=== PATIENT | female | born 1965 | race Caucasian/White ===

== ENCOUNTER → 2016-09-01 15:03 | Outpatient (CLI) | payer MEDICAID ==
[2012-09-27 01:02] VITALS: BMI 28.7
== END | disposition home or self-care (01) ==
LOC: D.US 15:00
DX: N63 Unspecified lump in breast (principal)

== ENCOUNTER 2016-09-02 15:28 | Emergency (ER) | payer MEDICAID ==
[2012-09-27 01:02] VITALS: BMI 28.7
== END 2016-09-02 16:27 | disposition home or self-care (01) ==
LOC: D.ER 15:28
DX: N64.4 Mastodynia (principal); R60.0 Localized edema; F41.9 Anxiety disorder, unspecified; M54.9 Dorsalgia, unspecified; M54.5 Low back pain; F17.200 Nicotine dependence, unspecified, uncomplicated

== ENCOUNTER 2016-09-04 09:26 | Emergency (ER) | payer MEDICAID ==
[2012-09-27 01:02] VITALS: BMI 28.7
== END 2016-09-04 10:58 | disposition home or self-care (01) ==
LOC: D.ER 09:26
DX: N61.0 Mastitis without abscess (principal); F17.200 Nicotine dependence, unspecified, uncomplicated

== ENCOUNTER → 2016-09-07 10:08 | Outpatient (CLI) | payer MEDICAID ==
[2012-09-27 01:02] VITALS: BMI 28.7
== END | disposition home or self-care (01) ==
LOC: D.US 10:08
DX: N63 Unspecified lump in breast (principal)

== ENCOUNTER 2016-09-18 09:19 | Emergency (ER) | payer MEDICAID ==
[2012-09-27 01:02] VITALS: BMI 28.7
[2016-09-18 10:14] LABS: BASOPHILS 0.5 % (0.0-2.0); EOSINOPHILS 1.7 % (0-7); HEMATOCRIT 53.5 % (36.0-48.0); HEMOGLOBIN 18.2 g/dL (12-16); IMMATURE GRANULOCYTES 0.2 % (0-5); LYMPHOCYTES 35.7 % (15-50); MCH 34.1 pg (26.0-34.0); MCV 100.2 fL (80.0-100.0); MEAN PLATELET VOLUME 9.3 fL (7.4-10.4); MONOCYTES 6.3 % (2-11); NEUTROPHILS 55.6 % (40-80); PLATELET COUNT 242 10x3/uL (130-400); RBC 5.34 10x6/uL (4.00-5.40); RDW 12.5 % (11.5-14.5); WBC 5.7 10x3/uL (4.8-10.8)
[2016-09-18 10:30] LABS: ALBUMIN 3.4 g/dL (3.4-5.0); ALKALINE PHOSPHATASE 71 U/L (46-116); ALT (SGPT) 16 U/L (10-68); CALC OSMOLALITY 272 mosm/kg (275-300); CHLORIDE - SERUM 98 mmol/L (98-107); CREATININE - SERUM 0.7 mg/dL (0.6-1.3); GLUCOSE 84 mg/dL (74-106); POTASSIUM - SERUM 4.1 mmol/L (3.5-5.1); PROTEIN - SERUM 7.1 g/dL (6.4-8.2); SODIUM 138 mmol/L (136-145); UREA NITROGEN 8 mg/dL (7-18); eGFR NON AFRICAN AMERICAN > 90 mL/min (90-120)
[2016-09-18 11:00] LABS: APPEARANCE HAZY (CLEAR); COLOR YELLOW (YELLOW); GLUCOSE NEGATIVE (NEGATIVE); KETONE NEGATIVE (NEGATIVE); LEUKOCYTE ESTERASE TRACE (NEGATIVE); NITRITE NEGATIVE (NEGATIVE); PROTEIN NEGATIVE (NEGATIVE); SPECIFIC GRAVITY 1.015 (1.005-1.020)
[2016-09-18 11:01] LABS: BILIRUBIN NEGATIVE (NEGATIVE); UROBILINOGEN NORMAL (NORMAL)
[2016-09-18 11:02] LABS: RED CELLS - URINE 0-5 /hpf (0-5); WHITE CELLS - URINE 0-5 /hpf (0-5)
[2016-09-18 11:03] LABS: BACTERIA MODERATE /hpf (NONE SEEN); MUCUS <1+ /lpf (NONE SEEN)
[2016-09-18 12:19] LABS: UDS - AMPHET NEGATIVE QUAL (NEGATIVE); UDS - BARB NEGATIVE QUAL (NEGATIVE); UDS - BENZO POSITIVE QUAL (NEGATIVE); UDS - COCAINE NEGATIVE QUAL (NEGATIVE); UDS - METH NEGATIVE QUAL (NEGATIVE); UDS - OPIATE POSITIVE QUAL (NEGATIVE); UDS - PCP NEGATIVE QUAL (NEGATIVE); UDS - THC NEGATIVE QUAL (NEGATIVE)
[2016-09-18 12:49] LABS: ERYTHROCYTE SEDIMENTATION RATE 1 mm/hr (0-30)
== END 2016-09-18 13:37 | disposition home or self-care (01) ==
LOC: D.ER 09:19
PROVIDERS: Emergency Medicine
DX: N64.4 Mastodynia (principal); M79.642 Pain in left hand; M79.641 Pain in right hand; N76.0 Acute vaginitis; F41.9 Anxiety disorder, unspecified; F17.200 Nicotine dependence, unspecified, uncomplicated

== ENCOUNTER 2016-10-13 14:51 | Emergency (ER) | payer MEDICAID ==
[2012-09-27 01:02] VITALS: BMI 28.7
== END 2016-10-13 16:32 | disposition left against medical advice (07) ==
LOC: D.ER 14:51
DX: R60.0 Localized edema (principal)

== ENCOUNTER → 2017-02-15 | Emergency (ER) | payer MEDICAID ==
[2012-09-27 01:02] VITALS: BMI 28.7
== END | disposition home or self-care (01) ==
LOC: D.ER 15:11
DX: S00.81XA Abrasion of other part of head, initial encounter (principal); W08.XXXA Fall from other furniture, initial encounter; Y93.89 Activity, other specified; Y92.89 Other specified places as the place of occurrence of the external cause; S60.212A Contusion of left wrist, initial encounter

== ENCOUNTER 2017-03-23 12:00 | Emergency (ER) | payer MEDICAID ==
[2012-09-27 01:02] VITALS: BMI 28.7
== END 2017-03-23 12:45 | disposition home or self-care (01) ==
LOC: D.ER 12:00
DX: L03.90 Cellulitis, unspecified (principal); B35.4 Tinea corporis

== ENCOUNTER 2017-03-29 06:07 | Inpatient (IN) | payer MEDICAID ==
[~2017-03-29] VITALS: Ht 160 cm; Wt 71.5 kg
[2017-03-29 06:49] LABS: APPEARANCE HAZY (CLEAR); BACTERIA MODERATE /hpf (NONE SEEN); BILIRUBIN NEGATIVE (NEGATIVE); COLOR DK YELLOW (YELLOW); GLUCOSE NEGATIVE (NEGATIVE); HYALINE CAST OCC /lpf (NONE SEEN); KETONE NEGATIVE (NEGATIVE); LEUKOCYTE ESTERASE TRACE (NEGATIVE); MUCUS <1+ /lpf (NONE SEEN); NITRITE NEGATIVE (NEGATIVE); PROTEIN NEGATIVE (NEGATIVE); RED CELLS - URINE NONE SEEN /hpf (0-5); WHITE CELLS - URINE 0-5 /hpf (0-5)
[2017-03-29 07:00] LABS: BASOPHILS 0.8 % (0-2); EOSINOPHILS 0.8 % (0-7); HEMATOCRIT 50.1 % (36.0-48.0); HEMOGLOBIN 17.7 g/dL (12-16); LYMPHOCYTES 25.6 % (15-50); MCH 35.9 pg (26.0-34.0); MCHC 35.3 g/dL (31.0-37.0); MCV 101.6 fL (80.0-100.0); MEAN PLATELET VOLUME 9.4 fL (7.4-10.4); NEUTROPHILS 62.8 % (40-80); PLATELET COUNT 279 10x3/uL (130-400); RBC 4.93 10x6/uL (4.00-5.40); RDW 13.6 % (11.5-14.5); WBC 5.3 10x3/uL (4.8-10.8)
[2017-03-29 07:45] LABS: ALBUMIN 3.4 g/dL (3.4-5.0); ALKALINE PHOSPHATASE 121 U/L (46-116); ALT (SGPT) 291 U/L (10-68); BILIRUBIN - TOTAL 1.99 mg/dL (0.2-1.3); CALCIUM 8.4 mg/dL (8.5-10.1); CARBON DIOXIDE 28.9 mmol/L (21.0-32.0); CHLORIDE - SERUM 92 mmol/L (98-107); CREATININE - SERUM 0.8 mg/dL (0.6-1.3); LIPASE 223 U/L (73-393); POTASSIUM - SERUM 3.1 mmol/L (3.5-5.1); PROTEIN - SERUM 7.2 g/dL (6.4-8.2); SODIUM 130 mmol/L (136-145); UREA NITROGEN 14 mg/dL (7-18); eGFR NON AFRICAN AMERICAN 80 mL/min (90-120)
[2017-03-29 07:48] LABS: CALC OSMOLALITY 263 mosm/kg (275-300); GLUCOSE 134 mg/dL (74-106)
--- NOTE | 2017-03-29 13:30 | NUR ---
TO ROOM 2225 FROM ER VIA WHEELCHAIR.PT STATES PAIN TO ABDOMEN 10/.SHE WANTS PAIN MMEDS AFTER CT ORDERED.
[2017-03-29] MEDS ORDERED: VALIUM10 MG PO (13:36)
[2017-03-29] MEDS ORDERED: HYDROCODON-ACE1 EAC7 PO (13:37)
[2017-03-29] MEDS ORDERED: HYDROCODONE-APA1 TAB PO (13:39)
[2017-03-29] MEDS ORDERED: CATAPRES0.1 MG PO (13:39)
[2017-03-29] MEDS ORDERED: CHLORTHALIDONE25 MG PO (13:40)
[2017-03-29] MEDS ORDERED: TENORMIN50 MG PO (13:40)
[2017-03-29] MEDS ORDERED: LOTENSIN40 MG PO (13:41)
[2017-03-29 13:53] VITALS: BP 158/96; BMI 26.7
--- NOTE | 2017-03-29 16:30 | NUR ---
BACK FROM CT. MEDS ORDERED.CONTACT ISOLATION.PT STATES POSSIBLE BED BUGS AT HOME.
[2017-03-29 17:11] LABS: HEMOGLOBIN A1C 5.2 % (4.8-6.0)
[2017-03-29 20:00] VITALS: BP 138/85
[2017-03-30] VITALS: BP 128/83
--- NOTE | 2017-03-30 03:49 | NUR ---
RN NOTE: PT LYING IN SUPINE POSITION WITH EYES CLOSED AND UNLABORED BREATHING. IV IN LEFT AC PATENT WITH NS INFUSING AT 75 ML /HR. CONTACT ISOLATION IN PLACE. WILL CONTINUE TO MONITOR FOR NEEDS. CALL LIGHT WITHIN REACH.
[2017-03-30 04:00] VITALS: BP 140/89
[2017-03-30 05:49] LABS: BASOPHILS 0.2 % (0-2); EOSINOPHILS 0.7 % (0-7); HEMATOCRIT 41.2 % (36.0-48.0); LYMPHOCYTES 29.7 % (15-50); MCH 34.8 pg (26.0-34.0); MCHC 33.3 g/dL (31.0-37.0); MEAN PLATELET VOLUME 9.3 fL (7.4-10.4); MONOCYTES 8.5 % (2-11); NEUTROPHILS 60.9 % (40-80); RDW 13.7 % (11.5-14.5); WBC 4.4 10x3/uL (4.8-10.8)
[2017-03-30 05:54] LABS: APTT 29.3 SECONDS (22.8-39.4); INR 1.07 (0.85-1.17); PROTIME 13.7 SECONDS (11.6-15.0)
[2017-03-30 05:57] LABS: HEMOGLOBIN 13.7 g/dL (12-16); MCV 104.6 fL (80.0-100.0); PLATELET COUNT 211 10x3/uL (130-400); RBC 3.94 10x6/uL (4.00-5.40)
[2017-03-30 06:05] LABS: ALBUMIN 2.6 g/dL (3.4-5.0); ALKALINE PHOSPHATASE 88 U/L (46-116); CALCIUM 7.8 mg/dL (8.5-10.1); CHLORIDE - SERUM 102 mmol/L (98-107); CREATININE - SERUM 0.7 mg/dL (0.6-1.3); GLUCOSE 124 mg/dL (74-106); POTASSIUM - SERUM 3.2 mmol/L (3.5-5.1); PROTEIN - SERUM 5.5 g/dL (6.4-8.2); SODIUM 139 mmol/L (136-145); eGFR NON AFRICAN AMERICAN > 90 mL/min (90-120)
[2017-03-30 06:07] LABS: ALT (SGPT) 161 U/L (10-68); CALC OSMOLALITY 275 mosm/kg (275-300); UREA NITROGEN 4 mg/dL (7-18)
--- NOTE | 2017-03-30 08:17 | NUR ---
NEW ORDERS RECEIVED FOR HEADACHE PAIN AND ABDOMINAL PAIN. REMAINS IN CONTACT ISOLATION. ASSESSMENT PERFORMED PER FLOWSHEET.
--- NOTE | 2017-03-30 08:25 | NUR ---
PRN TYLENOL AND DILAUDID ADMINISTERED AT THIS TIME FOR HEADACHE AND ABDOMINAL PAIN. PT REMAINS IN CONTACT ISOLATION. CALL LIGHT IN REACH. WILL CONTINUE WITH PLAN OF CARE.
[2017-03-30 08:55] VITALS: BP 149/91
--- NOTE | 2017-03-30 11:13 | NUR ---
20G IV TO LEFT AC D/C WITH CATH TIP INTACT BY PATIENT ON ACCIDENT. 22G IV SITED TO PT'S RIGHT FOREARM X1 ATTEMPT. BRISK BLOOD RETURN PRESENT. DENIES FURTHER NEEDS. CALL LIGHT IN REACH, WILL CONTINUE WITH PLAN OF CARE.
--- NOTE | 2017-03-30 11:31 | NUR ---
PRN DILAUDID ADMINISTERED AT THIS TIME PER ORDER FOR PAIN 04/23.
[2017-03-30 12:23] VITALS: BP 143/87
[2017-03-30 13:43] VITALS: Ht 160 cm; Wt 71.5 kg
--- NOTE | 2017-03-30 14:23 | NUR ---
PRN DILAUDID AND OFIRMEV ADMINISTERED AT THIS TIME.
--- NOTE | 2017-03-30 16:09 | NUR ---
DISCONNECTED TO AMBULATE WITH FRIENDS AROUND HOSPITAL.
[2017-03-30 16:49] VITALS: BP 115/76
--- NOTE | 2017-03-30 18:09 | NUR ---
PRN DILAUDID ADMINISTERED AT THIS TIME FOR PAIN 05/23. DENIES FURTHER NEEDS. CALL LIGHT IN REACH.
--- NOTE | 2017-03-30 18:43 | NUR ---
ATTEMPTED TO EAT DINNER WITHOUT SUCCESS. EXPERIENCED NAUSEA WITHOUT EMESIS.
[2017-03-30 20:00] VITALS: BP 111/60
[2017-03-31] VITALS: BP 144/83
--- NOTE | 2017-03-31 00:15 | NUR ---
PATIENT GIVEN SWABS AND ORAL CLEANING KIT FOR THIRST
--- NOTE | 2017-03-31 02:58 | NUR ---
PATIENT IS IN BED. JUST GOT BACK FROM OUTSIDE. HOOKED HER BACK UP TO HER IV. CONTACT ISOLATION PRECAUTIONS MAINTAINED. SHE DENIES FURTHER NEEDS.
[2017-03-31 04:00] VITALS: BP 130/78
[2017-03-31 05:05] LABS: BASOPHILS 0.2 % (0-2); EOSINOPHILS 2.2 % (0-7); HEMATOCRIT 41.1 % (36.0-48.0); HEMOGLOBIN 13.3 g/dL (12-16); LYMPHOCYTES 30.9 % (15-50); MCH 34.5 pg (26.0-34.0); MCHC 32.4 g/dL (31.0-37.0); MCV 106.5 fL (80.0-100.0); MEAN PLATELET VOLUME 9.7 fL (7.4-10.4); MONOCYTES 6.3 % (2-11); NEUTROPHILS 60.4 % (40-80); PLATELET COUNT 209 10x3/uL (130-400); RBC 3.86 10x6/uL (4.00-5.40); RDW 13.7 % (11.5-14.5)
[2017-03-31 05:06] LABS: WBC 5.9 10x3/uL (4.8-10.8)
[2017-03-31 05:43] LABS: ALBUMIN 2.8 g/dL (3.4-5.0); ALKALINE PHOSPHATASE 85 U/L (46-116); BILIRUBIN - DIRECT 0.26 mg/dL (0.00-0.30); CALCIUM 8.1 mg/dL (8.5-10.1); CARBON DIOXIDE 33.3 mmol/L (21.0-32.0); CHLORIDE - SERUM 101 mmol/L (98-107); CREATININE - SERUM 0.6 mg/dL (0.6-1.3); GLUCOSE 114 mg/dL (74-106); SODIUM 138 mmol/L (136-145); eGFR NON AFRICAN AMERICAN > 90 mL/min (90-120)
[2017-03-31 05:50] LABS: CALC OSMOLALITY 272 mosm/kg (275-300); UREA NITROGEN 1 mg/dL (7-18)
[2017-03-31 05:52] LABS: ALT (SGPT) 120 U/L (10-68); POTASSIUM - SERUM 2.7 mmol/L (3.5-5.1)
--- NOTE | 2017-03-31 07:33 | NUR ---
PT GIVEN DILAUDID FOR PAIN CONTROL ASSESSMENT COMPLETE AWAKE AND ALERT HAS RIDER XIMENA 1 OF 6 UP AT THIS TIME FOR K+ 2.6
[2017-03-31 08:16] LABS: HEPATITIS C ANTIBODY <0.1 (0.0-0.9)
[2017-03-31 08:42] LABS: HELICOBACTER PYLORI IGG NEGATIVE (NEGATIVE)
[2017-03-31 08:50] VITALS: BP 144/95
[2017-03-31 10:16] LABS: MAGNESIUM - SERUM 2.1 mg/dL (1.8-2.4); PHOSPHOROUS 3.3 mg/dL (2.5-4.9)
--- NOTE | 2017-03-31 11:16 | NUR ---
Patient Name: MARICARMEN CORONADO Admission Status: ER Accout number: [id number] Admission Date: 03-31-2017 : 1965 Admission Diagnosis: Attending: HAYLEY Current LOS: 1 Anticipated DC Date: 04-03-2017 Planned Disposition: Home Primary Insurance: MEDICAID [place] Discharge Planning Comments: CM MET WITH PATIENT REGARDING D/C NEEDS AND PLANS. PATIENT STATED SHE LIVES WITH A FRIEND (ALEC GRAYSON) AND HE WILL DRIVE HER HOME AT DISCHARGE. PATIENT HAS 5 STEPS W/RAILS TO ENTER HOME AND NO STAIRS INSIDE. PATIENT STATED SHE IS INDEPENDENT WITH HER CARE AND HAS NO DME AT HOME. PATIENTS PCP IS DR. CURRNA AND PHARMACY IS [facility] [facility]. PATIENT DOES NOT WANT HOME HEALTH AT THIS TIME. CM WILL CONTINUE TO FOLLOW PATIENT WITH D/C NEEDS AND PLANS. PCP DR. [facility]AN [facility] [phone] [facility] ALL OTHER MEDS [phone] Towel Rolling Machine Operator: Adri Goodman Is the patient Alert and Oriented? Yes 0 * How many steps to enter\exit or inside your home? 5 W/RAILS 0 * PCP DR. CURRAN 0 * Pharmacy [facility] 0 * Preadmission Environment Home with Family 0 * ADLs Independent 0 * Equipment None 0 * List name and contact numbers for known caregivers / representatives who currently or will assist patient after discharge: ALEC GRAYSON (FRIEND) [phone] * Community resources currently utilized None 0 * Additional services required to return to the preadmission environment? Yes 0 * Can the patient safely return to the preadmission environment? Yes 0 * Has this patient been hospitalized within the prior 30 days at any hospital? No 0 Grand Total: 0
[2017-03-31 12:33] VITALS: BP 151/83
[2017-03-31] MEDS ORDERED: NYSTATIN OINTME15 GM TOPICAL (14:35)
[2017-03-31] MEDS ORDERED: HYDROCORTISONE30 G8 TOPICAL (14:35)
[2017-03-31] MEDS ORDERED: NYSTATIN1 PWD TOPICAL (14:35)
--- NOTE | 2017-03-31 15:51 | NUR ---
PT DISCHARGED AT THIS TIME PER ORDER WITH ALL BELONGINGS AND HOME MEDICATIONS FROM [facility].
--- NOTE | 2017-03-31 16:01 | NUR ---
PATIENT D/C HOME WITH NO NEEDS
== END 2017-03-31 15:56 | disposition home or self-care (01) | DRG 392 ==
LOC: D.ER 06:07 → OBSVTIME 11:55 → D.MS 11:55
PROVIDERS: Family Medicine; Surgery; ADMIT Emergency Medicine
DX: R10.9 Unspecified abdominal pain (principal); F17.203 Nicotine dependence unspecified, with withdrawal; R11.2 Nausea with vomiting, unspecified; R19.7 Diarrhea, unspecified; B37.2 Candidiasis of skin and nail; I10 Essential (primary) hypertension; K76.0 Fatty (change of) liver, not elsewhere classified; E87.6 Hypokalemia; N28.1 Cyst of kidney, acquired

== ENCOUNTER 2017-07-18 07:48 | Emergency (ER) | payer MEDICAID ==
[2017-04-04 03:51] VITALS: BMI 27.8
[~2017-07-18 07:48] MED LIST: BACTRIM DS TABL1 TAB PO; CATAPRES0.1 MG PO; CHLORTHALIDONE25 MG PO; HYDROCODON-ACE1 EAC7 PO; HYDROCODONE-APA1 TAB PO; HYDROCORTISONE30 G8 TOPICAL; LOTENSIN40 MG PO; NYSTATIN OINTME15 GM TOPICAL; NYSTATIN1 PWD TOPICAL; OXYCODONE HCL5 MG PO; TENORMIN50 MG PO; VALIUM10 MG PO
== END 2017-07-18 09:43 | disposition home or self-care (01) ==
LOC: D.ER 07:48
DX: M25.511 Pain in right shoulder (principal); M54.2 Cervicalgia; I10 Essential (primary) hypertension; F17.200 Nicotine dependence, unspecified, uncomplicated

== ENCOUNTER 2017-08-18 21:43 | Observation (INO) | payer MEDICAID ==
[2017-08-18 22:20] LABS: BASOPHILS 0.3 % (0-2); HEMATOCRIT 47.4 % (36.0-48.0); HEMOGLOBIN 16.4 g/dL (12-16); IMMATURE GRANULOCYTES 0.1 % (0-5); LYMPHOCYTES 47.7 % (15-50); MCH 36.2 pg (26.0-34.0); MCHC 34.6 g/dL (31.0-37.0); MCV 104.6 fL (80.0-100.0); MEAN PLATELET VOLUME 9.2 fL (7.4-10.4); NEUTROPHILS 43.9 % (40-80); RBC 4.53 10x6/uL (4.00-5.40); RDW 12.5 % (11.5-14.5); WBC 7.3 10x3/uL (4.8-10.8)
[2017-08-18 22:21] LABS: APPEARANCE CLEAR (CLEAR); COLOR STRAW (YELLOW)
[2017-08-18 22:22] LABS: BILIRUBIN NEGATIVE (NEGATIVE); GLUCOSE NEGATIVE (NEGATIVE); KETONE NEGATIVE (NEGATIVE); NITRITE NEGATIVE (NEGATIVE); PROTEIN TRACE mg/dL (NEGATIVE); UROBILINOGEN NORMAL (NORMAL)
[2017-08-18 22:23] LABS: BACTERIA FEW /hpf (NONE SEEN); EPITHELIAL CELLS 0-5 /hpf (0-5); PLATELET COUNT 272 10x3/uL (130-400); RED CELLS - URINE OCC /hpf (0-5)
[2017-08-18 22:28] LABS: HCG URINE NEGATIVE (NEGATIVE); UDS - AMPHET NEGATIVE QUAL (NEGATIVE); UDS - BARB NEGATIVE QUAL (NEGATIVE); UDS - BENZO POSITIVE QUAL (NEGATIVE); UDS - COCAINE NEGATIVE QUAL (NEGATIVE); UDS - OPIATE POSITIVE QUAL (NEGATIVE); UDS - PCP NEGATIVE QUAL (NEGATIVE); UDS - THC NEGATIVE QUAL (NEGATIVE)
[2017-08-18 22:31] LABS: HCG SERUM NEGATIVE (NEGATIVE)
[2017-08-18 22:35] LABS: ACETAMINOPHEN 15.4 ug/mL (10.0-30.0); ALBUMIN 3.1 g/dL (3.4-5.0); ALKALINE PHOSPHATASE 76 U/L (46-116); ALT (SGPT) 19 U/L (10-68); BILIRUBIN - TOTAL 0.29 mg/dL (0.2-1.3); CALC OSMOLALITY 275 mosm/kg (275-300); CALCIUM 8.7 mg/dL (8.5-10.1); CARBON DIOXIDE 28.4 mmol/L (21.0-32.0); CHLORIDE - SERUM 98 mmol/L (98-107); CREATININE - SERUM 0.7 mg/dL (0.6-1.3); GLUCOSE 151 mg/dL (74-106); LIPASE 239 U/L (73-393); POTASSIUM - SERUM 3.2 mmol/L (3.5-5.1); PROTEIN - SERUM 6.5 g/dL (6.4-8.2); SODIUM 137 mmol/L (136-145); UREA NITROGEN 10 mg/dL (7-18); eGFR NON AFRICAN AMERICAN > 90 mL/min (90-120)
[2017-08-20 09:19] VITALS: BMI 27.8
== END 2017-08-20 09:47 | disposition home or self-care (01) ==
LOC: D.ER 21:43 → D.SDCHOLD 23:41 → OBSVTIME 23:41 → D.SDCHOLD 08-20 09:47 → D.ER 08-20 09:47 → D.SDCHOLD 08-20 09:47
PROVIDERS: Family Medicine
DX: T44.7X2A Poisoning by beta-adrenoreceptor antagonists, intentional self-harm, initial encounter (principal); T46.5X2A Poisoning by other antihypertensive drugs, intentional self-harm, initial encounter; T42.4X2A Poisoning by benzodiazepines, intentional self-harm, initial encounter; T45.0X2A Poisoning by antiallergic and antiemetic drugs, intentional self-harm, initial encounter; T51.92XA Toxic effect of unspecified alcohol, intentional self-harm, initial encounter; Y92.019 Unspecified place in single-family (private) house as the place of occurrence of the external cause; I10 Essential (primary) hypertension; R00.1 Bradycardia, unspecified; F17.203 Nicotine dependence unspecified, with withdrawal; Z91.14 Patient's other noncompliance with medication regimen

== ENCOUNTER 2018-01-18 10:40 | Emergency (ER) | payer MEDICAID ==
[~2018-01-18] VITALS: Ht 160 cm; Wt 70.5 kg
[2018-01-18 10:41] VITALS: Ht 160 cm; Wt 70.5 kg
[2018-01-18] MEDS ORDERED: PROCARDIA10 MG PO (10:44)
[2018-01-18] MEDS ORDERED: CATAPRES0.1 MG PO (10:45)
[2018-01-18 11:27] LABS: BASOPHILS 0.3 % (0-2); EOSINOPHILS 0.3 % (0-7); HEMATOCRIT 44.3 % (36.0-48.0); HEMOGLOBIN 15.1 g/dL (12-16); IMMATURE GRANULOCYTES 0.3 % (0-5); LYMPHOCYTES 29.5 % (15-50); MCHC 34.1 g/dL (31.0-37.0); MCV 105.7 fL (80.0-100.0); MEAN PLATELET VOLUME 9.1 fL (7.4-10.4); MONOCYTES 6.4 % (2-11); NEUTROPHILS 63.2 % (40-80); PLATELET COUNT 301 10x3/uL (130-400); RBC 4.19 10x6/uL (4.00-5.40); RDW 13.4 % (11.5-14.5); WBC 7.5 10x3/uL (4.8-10.8)
[2018-01-18 11:36] LABS: ALBUMIN 3.1 g/dL (3.4-5.0); ALKALINE PHOSPHATASE 99 U/L (46-116); ALT (SGPT) 28 U/L (10-68); CALC OSMOLALITY 278 mosm/kg (275-300); CALCIUM 8.3 mg/dL (8.5-10.1); CARBON DIOXIDE 21.4 mmol/L (21.0-32.0); CHLORIDE - SERUM 105 mmol/L (98-107); CKMB 0.5 U/L (0.0-3.6); CREATINE KINASE 35 UL (21-215); CREATININE - SERUM 0.7 mg/dL (0.6-1.3); GLUCOSE 138 mg/dL (74-106); POTASSIUM - SERUM 3.6 mmol/L (3.5-5.1); PROTEIN - SERUM 6.5 g/dL (6.4-8.2); SODIUM 138 mmol/L (136-145); TROPONIN-I < 0.017 ng/mL (0.000-0.060); UREA NITROGEN 15 mg/dL (7-18); eGFR NON AFRICAN AMERICAN > 90 mL/min (90-120)
[2018-01-18 11:47] LABS: APTT 29.4 SECONDS (22.8-39.4); INR 1.13 (0.85-1.17); PROTIME 14.1 SECONDS (11.6-15.0)
[2018-01-18] MEDS ORDERED: NORCO 7.5/325 T1 TA1 PO (13:30)
[2018-01-18] MEDS ORDERED: VALIUM10 MG PO (13:38)
[2018-01-18 13:44] VITALS: BP 120/62
== END 2018-01-18 13:48 | disposition home or self-care (01) ==
LOC: D.ER 10:40
PROVIDERS: Family Medicine
DX: S00.83XA Contusion of other part of head, initial encounter (principal); X58.XXXA Exposure to other specified factors, initial encounter; Y93.89 Activity, other specified; Y92.019 Unspecified place in single-family (private) house as the place of occurrence of the external cause; R07.89 Other chest pain; M54.2 Cervicalgia; I10 Essential (primary) hypertension; F17.200 Nicotine dependence, unspecified, uncomplicated

== ENCOUNTER 2018-03-11 09:56 | Emergency (ER) | payer MEDICAID ==
[~2018-03-11] VITALS: Ht 160 cm; Wt 68.2 kg
[~2018-03-11 09:56] MED LIST changes: +NORCO 7.5/325 T1 TA1 PO; +PROCARDIA10 MG PO
[2018-03-11 10:02] VITALS: Ht 160 cm; Wt 68.2 kg
[2018-03-11 10:27] LABS: BASOPHILS 0.3 % (0-2); EOSINOPHILS 0.1 % (0-7); HEMATOCRIT 49.9 % (36.0-48.0); HEMOGLOBIN 17.3 g/dL (12-16); IMMATURE GRANULOCYTES 0.1 % (0-5); MCH 36.7 pg (26.0-34.0); MCHC 34.7 g/dL (31.0-37.0); MCV 105.7 fL (80.0-100.0); MEAN PLATELET VOLUME 9.2 fL (7.4-10.4); MONOCYTES 5.6 % (2-11); NEUTROPHILS 72.9 % (40-80); PLATELET COUNT 323 10x3/uL (130-400); RBC 4.72 10x6/uL (4.00-5.40); RDW 12.3 % (11.5-14.5); WBC 7.8 10x3/uL (4.8-10.8)
[2018-03-11] MEDS ORDERED: VALIUM10 MG PO (10:36)
[2018-03-11] MEDS ORDERED: HYDROCODONE-APA1 TAB PO (10:36)
[2018-03-11 10:40] LABS: INR 0.99 (0.85-1.17); PROTIME 12.5 SECONDS (11.6-15.0)
[2018-03-11 10:41] LABS: APTT 23.7 SECONDS (22.8-39.4)
[2018-03-11 10:54] LABS: ALBUMIN 3.4 g/dL (3.4-5.0); ALKALINE PHOSPHATASE 111 U/L (46-116); ALT (SGPT) 24 U/L (10-68); BILIRUBIN - TOTAL 0.28 mg/dL (0.2-1.3); CALC OSMOLALITY 276 mosm/kg (275-300); CALCIUM 8.6 mg/dL (8.5-10.1); CARBON DIOXIDE 25.4 mmol/L (21.0-32.0); CHLORIDE - SERUM 101 mmol/L (98-107); CREATININE - SERUM 0.8 mg/dL (0.6-1.3); GLUCOSE 108 mg/dL (74-106); POTASSIUM - SERUM 3.9 mmol/L (3.5-5.1); PROTEIN - SERUM 7.1 g/dL (6.4-8.2); SODIUM 139 mmol/L (136-145); UREA NITROGEN 6 mg/dL (7-18); eGFR NON AFRICAN AMERICAN 80 mL/min (90-120)
[2018-03-11 11:05] LABS: CKMB 0.6 U/L (0.0-3.6); LIPASE 140 U/L (73-393)
[2018-03-11 11:06] LABS: TROPONIN-I < 0.017 ng/mL (0.000-0.060)
[2018-03-11 13:09] VITALS: BP 147/93
== END 2018-03-11 13:09 | disposition home or self-care (01) ==
LOC: D.ER 09:56
PROVIDERS: Emergency Medicine
DX: M50.30 Other cervical disc degeneration, unspecified cervical region (principal); R07.89 Other chest pain; F41.0 Panic disorder [episodic paroxysmal anxiety]; R06.02 Shortness of breath; I10 Essential (primary) hypertension; F17.200 Nicotine dependence, unspecified, uncomplicated

== ENCOUNTER 2018-05-07 08:07 | Outpatient (CLI) | payer MEDICAID ==
[~2018-05-07] VITALS: Ht 160 cm; Wt 68.2 kg
--- NOTE | ~2018-05-07 | HP ---
PATIENT: MARICARMEN CORONADO MEDICAL RECORD: [id number] ACCOUNT: [id number] LOCATION:[facility] : 65 ADMISSION DATE: 05/07/18 PCP: SUNNY LUCAS MD HISTORY AND PHYSICAL EXAMINATION DIAGNOSES: 1. Unstable angina. 2. Abnormal ECG. 3. Hypertension. HISTORY OF PRESENT ILLNESS: Mrs. Coronado presents with increasing episodes of chest discomfort over the last week. Chest pain has been going on for over a month; however, it has been worsening dramatically in the last week. Her EKG has nonspecific ST-T abnormalities. She continues to have episodes of chest pain despite good blood pressure control with Lotensin, Procardia, and Catapres. PHYSICAL EXAMINATION: GENERAL APPEARANCE: Well-nourished, well-developed, appears stated age. Level of distress, comfortable. PSYCHIATRIC: Mental status, alert, normal affect. Orientation, oriented to time, place and person. EYES: Lids and conjunctiva, noninjected. No discharge, no pallor. ENT: Lips, teeth, gums, normal dentition. Oropharynx, no cyanosis, no pallor. NECK: Carotid arteries, bilateral normal upstroke, no bruits, no thrills. JUGULAR VEINS: No jugular venous pressure or distention. CERVICAL LYMPH NODES: Nontender, nonenlarged. THYROID: Not enlarged. Nontender. No nodules. LUNGS: Respiratory effort, unlabored. CHEST: Normal curvature. No thoracic deformity. No chest wall tenderness. Percussion, resonant. Auscultation, clear. No wheezes, no rales, no rhonchi. CARDIOVASCULAR: Precordial exam, nondisplaced. No heaves or pericardial thrills. Rate and rhythm, regular. Heart sounds, normal S1, normal S2. No S3, no gallop, no rub. Systolic murmur, not heard. Diastolic murmur, not heard. EXTREMITIES: No cyanosis, no edema. Peripheral pulses, full and equal in all extremities, except as noted. No bruits appreciated. ABDOMEN: Soft, nondistended. Normal aorta. No bruit. Nontender. No masses. Liver, nontender, no hepatomegaly. Spleen, nontender, no splenomegaly. MUSCULOSKELETAL: No joint tenderness. No joint swelling. No erythema. NEUROLOGICAL: Normal gait, normal strength, normal tone. SKIN: Warm and dry. REVIEW OF SYSTEMS: The patient reports easy bruising but reports no swollen glands. The patient reports no fever, no night sweats, no significant weight gain, no significant weight loss. No significant exercise tolerance. The patient reports no dry eyes, no irritation, no vision change. Patient reports no difficulty hearing and no ear pain. Patient reports no frequent nose bleeds or nose and sinus problems. Patient reports on arm pain on exertion. No shortness of breath while lying down. No history of heart murmur. Patient reports no cough, no wheezing or coughing up blood. Patient reports no abdominal pain, no vomiting. Normal appetite. No diarrhea and not vomiting blood. No nausea and no constipation. Patient reports no incontinence. No difficulty urinating. No hematuria. No increased frequency. Patient reports no muscle aches. No weakness, no arthralgias, no back pain. No swelling of the extremities. Patient reports no abnormal mole, no jaundice, no rashes. Reports no loss of consciousness. No weakness and no numbness. No seizures, dizziness, HISTORY AND PHYSICAL [id number] GOESSMAN,MARICARMEN JAMES or headaches. The patient reports no depression, no sleep disturbance, feeling safe in a relationship and no alcohol abuse. Patient reports on fatigue. Reports no runny nose or sinus pressure. No itching, no hives, and no frequent sneezing. OVERALL IMPRESSION: Increasing anginal symptomatology. We will proceed with coronary angiography. Further care depends upon findings of the angiography. TRANSINT:[id number] Voice Confirmation ID: [id number] DOCUMENT ID: [id number] LINDSEY REEVES MD at 1823 CC: [id number] DICTATION DATE: 05/07/18931 GROCERY STORE CLERK: 05/07/1848 DEP CLI 05/07/18 [facility] [address] [id number]
--- NOTE | ~2018-05-07 | HEMODYNAMI ---
PATIENT:MARICARMEN CORONADO MEDICAL RECORD: [id number] : 65 [id number] ADMISSION DATE: 05/07/18 Generatedon:05/07/201811:30 Patient name: MARICARMEN CORONADO Patient #: [id number] SSN: [id number] : 1965 Date of study: 05/07/2018 Page: Of Hemodynamic Procedure Report Patient Data Patient Demographics Procedure consent was obtained First Name: MARICARMEN Gender: Female Last Name: IVONNE : 1965 Middle Initial: ERIKA Age: 52 year(s) Patient #: [id number] Race: SSN: [id number] Additional ID: [id number] Contact details Address: [address] [place] [address] ROAD State: [place] City: [facility] Zip code: [address] Past Medical History Allergies: No known allergies Admission Admission Data Admission Date: 05/07/2018 Admission Time: 8:07 Arrival Date: 05/07/2018 Arrival Time: 8:07 Admit Source: Emergency Insurance Payor: Medicaid department Room #: D.2120 Lab Results Lab Result Date: 05/07/2018 Lab Result Time: 0:00 Biochemistry Name Units Result Min Max BUN mg/dl 3 *-(----)-- 7 18 Creatinine mg/dl 0.7 --(*---)-- 0.6 1.3 CBC Name Units Result Min Max Hemoglobin g/dl 15.6 --(--*-)-- 13.5 17.5 Procedure Procedure Types Cath Procedure Diagnostic Procedure LHC LHC w/Coronaries Procedure Description Procedure Date Procedure Date: 05/07/2018 Procedure Start Time: 11:13 Procedure End Time: 11:27 Procedure Staff Name Function Juan Antonio Irby MD Performing Physician Kathia Bertrand RT Monitor Irene Finney RT Scrub Terrell Menon RN Nurse Raymundo Alamo RT Junior Architect Procedure Data Cath Procedure Fluoroscopy Diagnostic fluoroscopy Total fluoroscopy Time: 1.5 time: 1.5 min min Diagnostic fluoroscopy Total fluoroscopy dose: 360 dose: 360 mGy mGy Contrast Material Contrast Material Type Amount (ml) Isovue 300 64 Entry Location Entry Primary Successful Side Size Upsize Upsize Entry Closure Yu ccessful Closure Location (Fr) 1 (Fr) 2 (Fr) Remarks Device Remarks Radial Right 6 Fr Mechanical artery Short Compression Estimated blood loss: 5 ml Diagnostic catheters Device Type Used For End Catheter Placement DIAGNOSTIC [place] 110cm 5 Multi-vessel Fr catheter ([id number]) Angiography Procedure Complications No complications Procedure Medications Medication Administration Route Dosage Oxygen etCO2 Nasal cannula 2 l/min Heparin Flush Bag added to field 2 bags (1000units/500ml NS) 0.9% NaCl I.V. 100 ml/hr Radial Cocktail added to field 1 syringe (Verapomil 2mg/Nitro 400mcg/Heparin 1500units) Fentanyl I.V. 100 mcg Versed I.V. 2 mg Fentanyl I.V. 100 mcg Versed I.V. 2 mg Fentanyl I.V. 100 mcg Versed I.V. 2 mg Radial Cocktail I.A. 1 syringe (Verapomil 2mg/Nitro 400mcg/Heparin 1500units) Hemodynamics Rest HGB: 15.6 (g/dl) Heart Rate: 70 (bpm) Pressure Samples Time Site Value (mmHg) Purpose Heart Use Rate(bpm) 11:23 LV 98/36,12 Snapshot 122 Snapshots Pre Cath Intra NCS Post Cath Vital Signs Time Heart Resp SPO2 etCO2 NIBP (mmHg) Rhythm Pain Sedation Rate (ipm) (%) (mmHg) Status Level (bpm) 10:53:46 71 17 96 0 145/94(120) NSR 0 (11) 10(A) , No pain 10:57:58 62 17 96 44.1 129/88(106) NSR 0 (11) 10(A) , No pain 11:02:06 64 17 92 45.6 125/85(105) NSR 0 (11) 10(A) , No pain 11:06:12 66 16 93 47.9 132/85(105) NSR 0 (11) 10(A) , No pain 11:10:32 61 17 93 50.8 122/45(97) NSR 0 (11) 10(A) , No pain 11:14:36 75 16 91 56.8 138/87(103) NSR 0 (11) 10(A) , No pain 11:18:43 82 17 76 1.4 117/95(108) NSR 0 (11) 10(A) , No pain 11:22:49 80 17 86 62.8 125/78(111) NSR 0 (11) 10(A) , No pain 11:26:57 92 17 91 38.9 119/78(101) NSR 0 (11) 10(A) , No pain Medications Time Medication Route Dose Verified Delivered Reason Notes Effectiveness by by 10:56:23 Oxygen etCO2 2 l/min Juan Antonio Tejada Per Nasal Mahamed Menon RN physician cannula 10:56:29 Heparin Flush added 2 bags Juan Antonio Tejada used for Bag to Mahamed Menon RN procedure (1000units/500ml field NS) 10:56:37 0.9% NaCl I.V. 100 Juan Antonioesvin Paintingy Per ml/hr Mahamed Menon RN physician 10:56:49 Radial Cocktail added 1 Juan Antonio Tejada used for (Verapomil to syringe Mahamed Menon RN procedure 2mg/Nitro field 400mcg/Heparin 1500units) 11:10:47 Fentanyl I.V. 100 mcg Juan Antonio Tejada for sedation Mahamed Menon RN 11:10:53 Versed I.V. 2 mg Juan Antonio Paintingy for sedation Mahamed Menon RN 11:15:07 Fentanyl I.V. 100 mcg Juan Antonio Paintingy for sedation Mahamed Menon RN 11:15:10 Versed I.V. 2 mg Juan Antonio Paintingy for sedation Mahamed Menon RN 11:17:34 Fentanyl I.V. 100 mcg Juan Antonio Terrell for sedation Mahamed Menon RN 11:17:37 Versed I.V. 2 mg Juan Antonio Paintingy for sedation Mahamed Menon RN 11:22:11 Radial Cocktail I.A. 1 Juan Antonio Romano for (Verapomil syringe Mahamed Irby MD vasodilation 2mg/Nitro 400mcg/Heparin 1500units) Procedure Log Time Note 10:29:56 Informed consent obtained and on chart 10:29:59 Admit Source: Emergency department 10:30:04 Arrival Date: 05/07/2018 8:07:00 AM 10:30:10 Insurance Payor : Medicaid 10:31:39 Lab Result : Hemoglobin 15.6 g/dl 10:31:39 Lab Result : Creatinine 0.7 mg/dl 10:31:39 Lab Result : BUN 3 mg/dl 10:31:56 Diagnostic Cath Status : Urgent 10:32:22 Raymundo Alamo RT(R) sent for patient. Start room use. 10:32:26 Time tracking: Regular hours (M-F 7:00 - 5:00) 10:32:32 Plan of Care:Hemodynamics will remain stable., Cardiac rhythm will remain stable., Comfort level will be maintained., Respiratory function will remain adequate., Patient/ family verbilizes understanding of procedure., Procedure tolerated without complication., Recovers from procedure without complications.. 10:50:27 Patient received from ED to CCL 2 Alert and oriented. Tansferred to table in Supine position. 10:50:28 Warm blankets applied, and karyn hugger turned on for patient comfort. 10:50:28 Correct patient and procedure confirmed by team. 10:50:31 ECG and BP/O2 sat monitors applied to patient. 10:50:32 Pre-procedure instructions explained to patient. 10:50:32 Pre-op teaching completed and patient verbalized understanding. 10:50:37 Family unavailable. 10:50:58 Patient NPO since Midnight. 10:51:08 Patient allergic to No known allergies 10:51:10 Is the patient allergic to Iodine/contrast media? No. 10:51:11 Is patient on blood thinner?Yes 10:51:13 ACC The patient was administered the following blood thiners within the last 24 hours: ACCPlavix 10:51:15 Patient diabetic? No. 10:51:18 Previous problem with sedation/anesthesia? No ? 10:51:19 Snore? Yes 10:51:20 Sleep apnea? No 10:51:20 Deviated septum? No 10:51:21 Opens mouth fully? Yes 10:51:22 Sticks out tongue? Yes 10:51:24 Airway obstruction? No ? 10:51:26 Dentures? No ? 10:51:33 Modified Nasir's test Ulnar < 7 seconds 10:51:35 Patient pain scale 0/10 ?. 10:52:14 IV patent on arrival in left antecubital with 0.9% NaCl at [facility]. 10:52:15 Lab results completed and on chart. 10:52:18 Right Radial & Right Groin area was prepped with chlora-prep and draped in sterile fashion 10:52:19 Alarms reviewed by R. N. 10:52:19 Sharps counted by scrub and verified by R.N. 10:52:26 Use device set Radial Dx or PCI 10:52:27 ACIST Syringe (13674) opened to sterile field. 10:52:27 Medline Cath Pack ([id number]) opened to sterile field. 10:52:28 Bag Decanter (2002S) opened to sterile field. 10:52:29 ACIST Hand Control (18805) opened to sterile field. 10:52:29 ACIST Manifold (33014) opened to sterile field. 10:52:30 Tegaderm 4 x 4 (1626W) opened to sterile field. 10:52:30 MBrace Wrist Support ([id number]) opened to sterile field. 10:52:31 SHEATH 6Fr Prelude Radial ([id number]) opened to sterile field. 10:52:34 DIAGNOSTIC WIRE .035 260cm J wire (921740) opened to sterile field. 10:52:41 Vital chart was started 10:52:42 Baseline sample Acquired. 10:52:46 Rhythm: sinus rhythm 10:52:47 Full Disclosure recording started 10:56:23 Oxygen 2 l/min etCO2 Nasal cannula was administered by Terrell Menon RN; Per physician; 10:56:29 Heparin Flush Bag (1000units/500ml NS) 2 bags added to field was administered by Terrell Menon RN; used for procedure; 10:56:37 0.9% NaCl 100 ml/hr I.V. was administered by Terrell Menon RN; Per physician; 10:56:49 Radial Cocktail (Verapomil 2mg/Nitro 400mcg/Heparin 1500units) 1 syringe added to field was administered by Terrell Menon RN; used for procedure; 11:10:47 Fentanyl 100 mcg I.V. was administered by Terrell Menon RN; for sedation; 11:10:53 Versed 2 mg I.V. was administered by Terrell Menon RN; for sedation; 11:10:55 Physician arrived 11:10:55 --------ALL STOP TIME OUT------ 11:10:56 Final Timeout: patient, procedure, and site verified with staff and physician. All members of the team are in agreement. 11:10:59 Right Radial & Right Groin site verified by team. 11:11:02 Physical assessment completed. ASA score P 2 - A patient with mild systemic disease as per Juan Antonio Irby MD. 11:11:05 Sedation plan: IV Moderate Sedation Medication:Versed, Fentanyl 11:11:33 Zero performed for pressure channel P1 11:13:47 Procedure started. 11:13:58 Local anesthetic to right radial artery with Lidocaine 2% by Juan Antonio Irby MD.INITIAL ACCESS ONLY 11:15:07 Fentanyl 100 mcg I.V. was administered by Terrell Menon RN; for sedation; 11:15:10 Versed 2 mg I.V. was administered by Terrell Menon RN; for sedation; 11:17:34 Fentanyl 100 mcg I.V. was administered by Terrell Menon RN; for sedation; 11:17:37 Versed 2 mg I.V. was administered by Terrell Menon RN; for sedation; 11:21:52 A 6 Fr Short sheath was inserted into the Right Radial artery 11:22:11 Radial Cocktail (Verapomil 2mg/Nitro 400mcg/Heparin 1500units) 1 syringe I.A. was administered by Juan Antonio Irby MD; for vasodilation; 11:22:53 A DIAGNOSTIC [place] 110cm 5 Fr catheter ([id number]) was advanced over the wire and used for Multi-vessel Angiography. 11:23:43 LV hemodynamics recorded. 11:23:44 LV gram done using DOMINGUEZ 11:23:46 Injector settings: Ml/sec: 5, Volume: 15, 11:23:55 EF : 60 % 11:24:15 LCA angiography performed. 11:24:18 Injector settings: Ml/sec: 3, Volume: 6, 11:25:03 RCA angiography performed. 11:25:05 Injector settings: Ml/sec: 3, Volume: 6, 11:25:25 Catheter removed. 11:25:29 TR BAND Standard ([id number]) opened to sterile field. 11:26:08 Sheath removed intact; hemostasis achieved with Mechanical Compression to the Right Radial artery. 11:26:10 Procedure ended.(Physican Out) 11:26:19 Fluoroscopy time 01.50 minutes. 11:26:23 Fluoroscopy dose: 360 mGy 11:26:23 Flurop Dose total: 360 11:26:28 Contrast amount:Isovue 300 64ml. 11:26:30 Sharps counted by scrub and verified by R.N. 11:26:34 TR band inflated with 10cc of air. 11:26:35 Insertion/operative site no bleeding no hematoma. 11:26:41 Post right radial artery:stable 11:26:42 Post Procedure Pulses reassessed and unchanged 11:26:45 Post procedure rhythm: unchanged. 11:26:47 Estimated blood loss: 5 ml 11:26:49 Post procedure instruction explained to patient.Patient verbalizes understanding. 11:26:49 Patient needs reinforcement of post procedure teaching. 11:26:57 Procedure and supply charges have been captured, reviewed, submitted and are correct. 11:27:01 Procedure Complication : No complications 11:27:03 Vital chart was stopped 11:27:04 See physician's report for complete and final results. 11:27:17 Report given to Pre/Post Procedure Room. 11:27:20 Patient transfered to Pre/Post Procedure Room with Stretcher. 11:27:23 Procedure ended. 11:27:23 Full Disclosure recording stopped 11:27:27 End room use (Document Last) Device Usage Item Name Manufacture Quantity Catalog Number Hospital Part Current M inimal Lot# / Charge Number Stock Stock Serial# Code ACIST Syringe Acist 1 [id number] 214874 140226 030386 2 0 (84129) Medical Systems Inc Medline Cath Cardinal 1 [id number] 84035 031791 5 Pack Health ([id number]) Bag Decanter Microtek 1 [id number] 15202 770493 5 () Medical Inc. ACIST Hand Acist 1 19629 702201 946689 259876 5 Control (12807) Medical Systems Inc ACIST Manifold Acist 1 64050 981508 690678 376489 5 (18962) Medical Systems Inc Tegaderm 4 x 4 3M 1 1626W 302687 292609 956749 5 (1626W) MBrace Wrist Advanced 1 140-0250-00 690976 24521 932688 5 Support Vascular ([id number]) Dynamics SHEATH 6Fr Merit 1 [id number] 514727 881925 088635 5 Prelude Radial Medical ([id number]) DIAGNOSTIC WIRE [facility] [place] 1 377129 642603 270398 711678 3 0 .035 260cm J wire (556028) DIAGNOSTIC Terumo 1 69-5794 728166 412056 864533 5 [place] 110cm 5 Fr catheter (934529) TR BAND Terumo 1 [id number] 929677 243602 083036 4 0 Standard ([id number]) Signature Audit [place] Stage Time Signature Unsigned Intra-Procedure 05/07/2018 Kathia Bertrand 11:30:22 AM RT(R) Signatures Monitor : Kathia Bertrand RT Signature : Date : Time : [id number] [place] [address]
--- NOTE | ~2018-05-07 | OP ---
PATIENT NAME: MARICARMEN CORONADO MEDICAL RECORD: [id number] :65 LOCATION:D.CAT ADMISSION DATE: SURGEON: LINDSEY REEVES MD DATE OF OPERATION: 05/07/2018 PROCEDURES: 1. Left heart catheterization. 2. Selective coronary angiography. 3. Left ventriculogram. INDICATIONS: Chest pain compatible with angina. PROCEDURE IN DETAIL: After informed consent was obtained and after a detailed description of risks, benefits as well as alternative therapies, the patient elected to proceed angiogram and heart catheterization. The right radial area was prepped and draped in normal sterile fashion. Right radial artery was cannulated via modified Seldinger technique with placement of 5-Danish sheath. All catheters exchanged through this sheath. FINDINGS: Left ventriculogram was performed in standard 30-degree DOMINGUEZ view, reveals good cardiac wall motion throughout all segments. Overall ejection fraction estimated at 60%. SELECTIVE CORONARY ANGIOGRAPHY: Left main, left anterior descending, left circumflex, right coronary are all smooth-walled vessels with no angiographic evidence of coronary artery disease. OVERALL IMPRESSION: 1. No angiographic evidence of coronary artery disease. 2. Normal left heart pressures. 3. Normal left ventricular systolic function. Chest pain is noncardiac in etiology. No further cardiac workup needs to be ascertained. TRANSINT:[id number] Voice Confirmation ID: [id number] DOCUMENT ID: [id number] LINDSEY REEVES MD at 1823 CC: [id number] DICTATION DATE: 05/07/18 1129 SHERIFF: 05/07/18 1246 DEP CLI 05/07/18 [id number] [place] [id number]
[2018-05-07 08:10] VITALS: Ht 160 cm; Wt 68.2 kg
[2018-05-07 08:36] LABS: BASOPHILS 0.1 % (0-2); EOSINOPHILS 0.1 % (0-7); HEMATOCRIT 45.2 % (36.0-48.0); HEMOGLOBIN 15.6 g/dL (12-16); IMMATURE GRANULOCYTES 0.1 % (0-5); MCH 35.5 pg (26.0-34.0); MCHC 34.5 g/dL (31.0-37.0); MEAN PLATELET VOLUME 9.4 fL (7.4-10.4); MONOCYTES 3.8 % (2-11); NEUTROPHILS 76.9 % (40-80); RBC 4.39 10x6/uL (4.00-5.40); RDW 12.8 % (11.5-14.5); WBC 6.9 10x3/uL (4.8-10.8)
[2018-05-07 08:38] LABS: PLATELET COUNT 252 10x3/uL (130-400)
[2018-05-07 09:00] LABS: ALKALINE PHOSPHATASE 96 U/L (46-116); ALT (SGPT) 21 U/L (10-68); BILIRUBIN - TOTAL 0.85 mg/dL (0.2-1.3); CALC OSMOLALITY 277 mosm/kg (275-300); CALCIUM 8.1 mg/dL (8.5-10.1); CARBON DIOXIDE 26.6 mmol/L (21.0-32.0); CHLORIDE - SERUM 102 mmol/L (98-107); CREATININE - SERUM 0.7 mg/dL (0.6-1.3); GLUCOSE 132 mg/dL (74-106); POTASSIUM - SERUM 3.1 mmol/L (3.5-5.1); PROTEIN - SERUM 6.2 g/dL (6.4-8.2); SODIUM 140 mmol/L (136-145); UREA NITROGEN 3 mg/dL (7-18); eGFR NON AFRICAN AMERICAN > 90 mL/min (90-120)
[2018-05-07 09:11] LABS: CKMB 0.1 U/L (0.0-3.6); CREATINE KINASE 22 UL (21-215); PRO BNP 382 pg/mL (0-125)
[2018-05-07 09:13] LABS: TROPONIN-I < 0.017 ng/mL (0.000-0.060)
[2018-05-07 10:35] VITALS: BP 124/84
== END 2018-05-07 14:20 ==
LOC: D.CATH 08:07 → D.M2 08:07 → D.ER 08:07 → EDSTATUS 08:53 → D.M2 10:35 → D.CLR 11:37 → D.CATH 14:20
PROVIDERS: Emergency Medicine
DX: I20.9 Angina pectoris, unspecified (principal)

== ENCOUNTER 2018-05-27 16:57 | Observation (INO) | payer MEDICAID ==
[~2018-05-27] VITALS: Ht 160 cm; Wt 71.1 kg
[2018-05-27 17:40] LABS: BASOPHILS 0.1 % (0-2); EOSINOPHILS 0.1 % (0-7); HEMATOCRIT 48.6 % (36.0-48.0); HEMOGLOBIN 16.6 g/dL (12-16); IMMATURE GRANULOCYTES 0.4 % (0-5); LYMPHOCYTES 18.9 % (15-50); MCH 36.1 pg (26.0-34.0); MCHC 34.2 g/dL (31.0-37.0); MCV 105.7 fL (80.0-100.0); MEAN PLATELET VOLUME 9.3 fL (7.4-10.4); MONOCYTES 5.4 % (2-11); NEUTROPHILS 75.1 % (40-80); RDW 13.3 % (11.5-14.5); WBC 8.6 10x3/uL (4.8-10.8)
[2018-05-27 17:47] LABS: PLATELET COUNT 314 10x3/uL (130-400)
[2018-05-27 17:55] LABS: APTT 25.5 SECONDS (22.8-39.4); INR 0.95 (0.85-1.17); PROTIME 12.3 SECONDS (11.6-15.0)
[2018-05-27 18:15] LABS: ALBUMIN 3.3 g/dL (3.4-5.0); ALKALINE PHOSPHATASE 87 U/L (46-116); ALT (SGPT) 19 U/L (10-68); BILIRUBIN - TOTAL 0.16 mg/dL (0.2-1.3); CALC OSMOLALITY 281 mosm/kg (275-300); CALCIUM 8.7 mg/dL (8.5-10.1); CARBON DIOXIDE 20.6 mmol/L (21.0-32.0); CHLORIDE - SERUM 102 mmol/L (98-107); CREATININE - SERUM 1.1 mg/dL (0.6-1.3); GLUCOSE 151 mg/dL (74-106); POTASSIUM - SERUM 3.1 mmol/L (3.5-5.1); PROTEIN - SERUM 7.3 g/dL (6.4-8.2); SODIUM 141 mmol/L (136-145); UREA NITROGEN 6 mg/dL (7-18); eGFR NON AFRICAN AMERICAN 55 mL/min (90-120)
[2018-05-27 18:27] LABS: CKMB 0.2 U/L (0.0-3.6); CREATINE KINASE 19 UL (21-215); TROPONIN-I < 0.017 ng/mL (0.000-0.060)
[2018-05-27 18:34] VITALS: BP 142/95
[2018-05-27 19:10] VITALS: BP 158/105
[2018-05-27 20:37] VITALS: BP 158/104
[2018-05-27 22:11] VITALS: BP 141/107
[2018-05-27 22:50] VITALS: BP 135/75; Ht 160 cm; Wt 71.1 kg
[2018-05-28 01:40] LABS: CKMB 0.1 U/L (0.0-3.6); CREATINE KINASE 12 UL (21-215)
[2018-05-28 01:42] LABS: TROPONIN-I < 0.017 ng/mL (0.000-0.060)
[2018-05-28 04:00] VITALS: BP 130/74
[2018-05-28 06:47] LABS: CKMB 0.5 U/L (0.0-3.6); CREATINE KINASE 18 UL (21-215); TROPONIN-I < 0.017 ng/mL (0.000-0.060)
[2018-05-28 08:34] VITALS: BP 129/106
[2018-05-28] MEDS ORDERED: NIFEDIPINE30 MG/BOT1 PO (08:59)
[2018-05-28] MEDS ORDERED: CATAPRES0.1 MG PO (09:01)
== END 2018-05-28 10:31 | disposition home or self-care (01) ==
LOC: D.ER 16:57 → D.M2 22:09 → OBSVTIME 22:09 → D.M2 05-28 10:31
PROVIDERS: Emergency Medicine
DX: I16.0 Hypertensive urgency (principal)

== ENCOUNTER 2018-06-03 17:19 | Emergency (ER) | payer MEDICAID ==
[~2018-06-03] VITALS: Ht 160 cm; Wt 72.7 kg
[~2018-06-03 17:19] MED LIST changes: +NIFEDIPINE30 MG/BOT1 PO
[2018-06-03 17:24] VITALS: Ht 160 cm; Wt 72.7 kg
[2018-06-03 18:00] LABS: BASOPHILS 0.2 % (0-2); EOSINOPHILS 0 % (0-7); HEMOGLOBIN 16.3 g/dL (12-16); IMMATURE GRANULOCYTES 0.2 % (0-5); LYMPHOCYTES 20.7 % (15-50); MCHC 34.7 g/dL (31.0-37.0); MCV 103.8 fL (80.0-100.0); MEAN PLATELET VOLUME 8.9 fL (7.4-10.4); MONOCYTES 4.5 % (2-11); NEUTROPHILS 74.4 % (40-80); PLATELET COUNT 250 10x3/uL (130-400); RBC 4.53 10x6/uL (4.00-5.40); RDW 12.9 % (11.5-14.5); WBC 8.7 10x3/uL (4.8-10.8)
[2018-06-03 18:16] LABS: ALBUMIN 3.6 g/dL (3.4-5.0); ALKALINE PHOSPHATASE 86 U/L (46-116); ALT (SGPT) 18 U/L (10-68); BILIRUBIN - TOTAL 0.57 mg/dL (0.2-1.3); CALC OSMOLALITY 271 mosm/kg (275-300); CARBON DIOXIDE 24.1 mmol/L (21.0-32.0); CHLORIDE - SERUM 100 mmol/L (98-107); CREATININE - SERUM 0.7 mg/dL (0.6-1.3); GLUCOSE 111 mg/dL (74-106); POTASSIUM - SERUM 3.6 mmol/L (3.5-5.1); PROTEIN - SERUM 7.5 g/dL (6.4-8.2); SODIUM 137 mmol/L (136-145); UREA NITROGEN 5 mg/dL (7-18); eGFR NON AFRICAN AMERICAN > 90 mL/min (90-120)
[2018-06-03 18:21] LABS: APPEARANCE CLEAR (CLEAR); BILIRUBIN NEGATIVE (NEGATIVE); COLOR YELLOW (YELLOW); GLUCOSE NEGATIVE (NEGATIVE); KETONE NEGATIVE (NEGATIVE); NITRITE NEGATIVE (NEGATIVE); PROTEIN NEGATIVE (NEGATIVE); SPECIFIC GRAVITY 1.005 (1.005-1.020); UROBILINOGEN NORMAL (NORMAL)
[2018-06-03 18:27] LABS: UDS - AMPHET NEGATIVE QUAL (NEGATIVE); UDS - BARB NEGATIVE QUAL (NEGATIVE); UDS - BENZO POSITIVE QUAL (NEGATIVE); UDS - COCAINE NEGATIVE QUAL (NEGATIVE); UDS - OPIATE POSITIVE QUAL (NEGATIVE); UDS - PCP NEGATIVE QUAL (NEGATIVE); UDS - THC NEGATIVE QUAL (NEGATIVE)
[2018-06-03 18:28] LABS: AMYLASE - SERUM 26 U/L (25-115); CKMB 0.2 U/L (0.0-3.6); CREATINE KINASE 19 UL (21-215); LIPASE 179 U/L (73-393); PRO BNP 38 pg/mL (0-125); TROPONIN-I < 0.017 ng/mL (0.000-0.060)
[2018-06-03] MEDS ORDERED: CATAPRES0.1 MG PO (19:41)
[2018-06-03] MEDS ORDERED: KLONOPIN0.5 MG PO (19:41)
[2018-06-03 19:57] VITALS: BP 130/79
== END 2018-06-03 19:57 | disposition home or self-care (01) ==
LOC: D.ER 17:19
PROVIDERS: Family Medicine
DX: I10 Essential (primary) hypertension (principal); F41.9 Anxiety disorder, unspecified; F17.200 Nicotine dependence, unspecified, uncomplicated; R00.0 Tachycardia, unspecified

== ENCOUNTER 2018-09-08 10:02 | Emergency (ER) | payer MEDICAID ==
[~2018-09-08] VITALS: Ht 160 cm; Wt 72.8 kg
[~2018-09-08 10:02] MED LIST changes: +KLONOPIN0.5 MG PO
[2018-09-08 10:10] VITALS: Ht 160 cm; Wt 72.8 kg
[2018-09-08 10:43] LABS: APPEARANCE CLEAR (CLEAR); BILIRUBIN NEGATIVE (NEGATIVE); COLOR DK YELLOW (YELLOW); GLUCOSE NEGATIVE (NEGATIVE); KETONE NEGATIVE (NEGATIVE); NITRITE NEGATIVE (NEGATIVE); PROTEIN NEGATIVE (NEGATIVE); UROBILINOGEN NORMAL (NORMAL)
[2018-09-08 11:43] LABS: BASOPHILS 0.1 % (0-2); EOSINOPHILS 0.1 % (0-7); HEMATOCRIT 48.2 % (36.0-48.0); HEMOGLOBIN 16.4 g/dL (12-16); IMMATURE GRANULOCYTES 0.3 % (0-5); LYMPHOCYTES 9.6 % (15-50); MCH 35.8 pg (26.0-34.0); MCV 105.2 fL (80.0-100.0); MEAN PLATELET VOLUME 9.7 fL (7.4-10.4); MONOCYTES 5.9 % (2-11); PLATELET COUNT 208 10x3/uL (130-400); RBC 4.58 10x6/uL (4.00-5.40); RDW 12.3 % (11.5-14.5)
[2018-09-08 11:55] LABS: ALBUMIN 3.4 g/dL (3.4-5.0); ALKALINE PHOSPHATASE 155 U/L (46-116); ALT (SGPT) 52 U/L (10-68); BILIRUBIN - TOTAL 0.78 mg/dL (0.2-1.3); CALC OSMOLALITY 273 mosm/kg (275-300); CALCIUM 8.2 mg/dL (8.5-10.1); CARBON DIOXIDE 28.5 mmol/L (21.0-32.0); CHLORIDE - SERUM 100 mmol/L (98-107); CREATININE - SERUM 0.8 mg/dL (0.6-1.3); GLUCOSE 103 mg/dL (74-106); POTASSIUM - SERUM 3.1 mmol/L (3.5-5.1); PROTEIN - SERUM 7.5 g/dL (6.4-8.2); SODIUM 138 mmol/L (136-145); UREA NITROGEN 8 mg/dL (7-18); eGFR NON AFRICAN AMERICAN 80 mL/min (90-120)
[2018-09-08 11:58] LABS: AMYLASE - SERUM 10 U/L (25-115); LIPASE 68 U/L (73-393)
[2018-09-08 12:02] LABS: TROPONIN-I < 0.017 ng/mL (0.000-0.060)
[2018-09-08] MEDS ORDERED: MACROBID100 MG PO (14:22)
[2018-09-08] MEDS ORDERED: VOLTAREN75 MG PO (14:22)
[2018-09-08 14:58] VITALS: BP 128/87
== END 2018-09-08 14:59 | disposition home or self-care (01) ==
LOC: D.ER 10:02
PROVIDERS: Family Medicine
DX: N30.90 Cystitis, unspecified without hematuria (principal); M79.18 Myalgia, other site; R11.2 Nausea with vomiting, unspecified; I10 Essential (primary) hypertension; F17.200 Nicotine dependence, unspecified, uncomplicated

== ENCOUNTER 2019-01-08 16:43 | Emergency (ER) | payer MEDICAID ==
[~2019-01-08] VITALS: Ht 160 cm; Wt 72.7 kg
[~2019-01-08 16:43] MED LIST changes: +MACROBID100 MG PO; +VOLTAREN75 MG PO
[2019-01-08 16:57] VITALS: Ht 160 cm; Wt 72.7 kg
[2019-01-08] MEDS ORDERED: VOLTAREN75 MG PO (17:48)
[2019-01-08] MEDS ORDERED: SILVADENE20 GM TP (17:48)
[2019-01-08] MEDS ORDERED: TALWIN NX1 TAB PO (17:48)
[2019-01-08 18:01] VITALS: BP 118/74
== END 2019-01-08 18:00 | disposition home or self-care (01) ==
LOC: D.ER 16:43
DX: L03.114 Cellulitis of left upper limb (principal); T22.112A Burn of first degree of left forearm, initial encounter; X19.XXXA Contact with other heat and hot substances, initial encounter; Y93.89 Activity, other specified; Y92.010 Kitchen of single-family (private) house as the place of occurrence of the external cause

== ENCOUNTER 2019-03-20 15:54 | Emergency (ER) | payer MEDICAID ==
[~2019-03-20] VITALS: Ht 160 cm; Wt 70.5 kg
[~2019-03-20 15:54] MED LIST changes: +SILVADENE20 GM TP; +TALWIN NX1 TAB PO
[2019-03-20 16:50] VITALS: Ht 160 cm; Wt 70.5 kg
[2019-03-20] MEDS ORDERED: HYDROCODON-ACE1 EA10 PO (19:26)
[2019-03-20] MEDS ORDERED: IBUPROFEN800 MG PO (19:26)
[2019-03-20] MEDS ORDERED: CYCLOBENZAPRINE10 MG PO (19:26)
[2019-03-20 19:45] VITALS: BP 135/74
== END 2019-03-20 19:45 | disposition home or self-care (01) ==
LOC: D.ER 15:54
DX: S22.41XA Multiple fractures of ribs, right side, initial encounter for closed fracture (principal); W18.31XA Fall on same level due to stepping on an object, initial encounter; Y93.89 Activity, other specified; Y92.019 Unspecified place in single-family (private) house as the place of occurrence of the external cause; R07.89 Other chest pain

== ENCOUNTER 2020-12-13 11:15 | Inpatient (IN) | payer MEDICAID ==
[2020-12-13] VITALS (15 sets, daily range): BP systolic 93–117; BP diastolic 59–83; Ht 162.6 cm; Wt 61.9 kg
[~2020-12-13] VITALS: Ht 162.6 cm; Wt 61.9 kg
[~2020-12-13 11:15] MED LIST changes: +ACETAMINOPHEN500 M1 PO; +ALBUTEROL SULF8.5 GM INH; +BACTRIM DS TAB1 EAC1 PO; +CYCLOBENZAPRINE10 MG PO; +HYDROCODON-ACE1 EA10 PO; +IBUPROFEN800 MG PO; +STERAPRED DS 1010 MG PO; +TYLENOL W/CODEI1 TAB PO
--- NOTE | 2020-12-13 11:29 | NUR ---
2x2 BORDERED GAUZE DRESSING APPLIED TO SKIN TEAR ON LEFT FA. 4X4 STERILE GAUZE APPLIED TO SKIN TEAR TO RIGHT FA AND HELD IN PLACE WITH STERILE TRANSPARENT DRESSING. TOLERATED WELL.
--- NOTE | 2020-12-13 11:30 | NUR ---
ATTEMPTED IN AND OUT, PATIENT UNCOOPERATIVE, UNSUCCESSFUL.
--- NOTE | 2020-12-13 11:31 | NUR ---
ON ARRIVAL PATIENT STATES THAT SHE CONSUMED BEER LAST NIGHT, APPEARS INTOXICATED AT THIS TIME. EMS STATES THAT SEVERAL EMPTY BOTTLES OF HTN MEDICATIONS WERE FOUND IN THE HOME, AND RIG MECHANIC STATES HE FEELS HE HAS TO FILL THEM TWICE MUCH HE SHOULD BE. EMS REPORTS NO CONFIRMATION OF OD, JUST RELAYING INFORMATION. PATIENT POOR HISTORIAN, ORIENTED TO PERSON AND SITUATION.
--- NOTE | 2020-12-13 11:43 | NUR ---
PATIENT ASSISTED FROM BED TO BSC, NO VOID OR BM. PATIENT BUTTOCKS AND BACK COVERED IN FECES. ATTEMPTED TO CLEAN PATIENT AND CLOTHES, WAS ABLE TO CLEAN SKIN, REFUSES TO REMOVE CLOTHING. PATIENT IS VERY UNSTEADY, HAD TO INSTRUMENT REPAIR TECHNICIAN AND PLACE IN BED. EDEMA NOTED TO FEET. DR FRAIRE NOTIFIED. PATIENT ORIENTED TO SELF AND SITUATION, REPEATEDLY REQUESTING PAIN MEDICATION.
--- NOTE | 2020-12-13 12:04 | NUR ---
PATIENT COVERED WITH BLANKET PER REQUEST. HIGH FALL RISK MEASURES STARTED.
[2020-12-13 12:10] LABS: APTT 27.5 SECONDS (22.8-39.4); INR 1.31 (0.85-1.17); PROTIME 15.1 SECONDS (11.6-15.0)
--- NOTE | 2020-12-13 12:12 | NUR ---
LAB IN ROOM TO REDRAW BLOOD.
--- NOTE | 2020-12-13 12:19 | NUR ---
FOOD TRAY ORDERED.
[2020-12-13 12:34] LABS: BASOPHILS 0.1 % (0-2); EOSINOPHILS 0 % (0-7); HEMATOCRIT 38.1 % (36.0-48.0); HEMOGLOBIN 13.9 g/dL (12-16); IMMATURE GRANULOCYTES 0.9 % (0-5); LYMPHOCYTES 5.8 % (15-50); MCH 35.8 pg (26.0-34.0); MCHC 36.5 g/dL (31.0-37.0); MCV 98.2 fL (80.0-100.0); MEAN PLATELET VOLUME 10.1 fL (7.4-10.4); MONOCYTES 6.8 % (2-11); NEUTROPHIL ABS# 11.89 10x3/uL (1.56-6.13); NEUTROPHILS 86.4 % (40-80); PLATELET COUNT 246 10x3/uL (130-400); RBC 3.88 10x6/uL (4.00-5.40); RDW 13.9 % (11.5-14.5); WBC 13.8 10x3/uL (4.8-10.8)
--- NOTE | 2020-12-13 13:19 | NUR ---
PATIENT ASSISTED TO BEDSIDE COMMODE X 2. UNABLE TO URINATE. CLEANED OF FECES, NEW LINENS APPLIED. CAREY CATHETER INSERTED PER PROTOCOL, PATIENT TOLERATED WELL, 2300ML ORANGE CLOUDY URINE OUTPUT REPORTED TO DR FRAIRE, SAMPLE SENT TO LAB. PATIENT SCREAMING AT STAFF, SCREAMING FOR PAIN MEDICATIONS. NOTIFIED THAT SHE CANNOT HAVE PAIN MEDICATIONS AT THIS TIME. ASSISTED TO POSITION OF COMFORT.
--- NOTE | 2020-12-13 13:21 | NUR ---
PATIENT COVERED WITH BLANKETS AND LIGHTS TURNED OFF PER PATIENT REQUEST.
[2020-12-13 13:32] LABS: BILIRUBIN NEGATIVE (NEGATIVE); KETONE SMALL mg/dL (NEGATIVE); NITRITE NEGATIVE (NEGATIVE); UROBILINOGEN NORMAL mg/dL (< 2)
[2020-12-13 13:33] LABS: BACTERIA FEW HPF (NONE SEEN); SQUAMOUS EPITHELIAL 0-5 HPF (0-4); WHITE CELLS - URINE 2 HPF (0-4)
[2020-12-13 13:41] LABS: UDS - AMPHET NEGATIVE QUAL (NEGATIVE); UDS - BARB NEGATIVE QUAL (NEGATIVE); UDS - BENZO NEGATIVE QUAL (NEGATIVE); UDS - COCAINE NEGATIVE QUAL (NEGATIVE); UDS - OPIATE POSITIVE QUAL (NEGATIVE); UDS - PCP NEGATIVE QUAL (NEGATIVE); UDS - THC NEGATIVE QUAL (NEGATIVE)
[2020-12-13 14:03] LABS: ALBUMIN 1.7 g/dL (3.4-5.0); ALKALINE PHOSPHATASE 164 U/L (30-120); ALT (SGPT) 82 U/L (10-68); BILIRUBIN - TOTAL 0.27 mg/dL (0.2-1.3); CARBON DIOXIDE 14.3 mmol/L (21.0-32.0); CKMB 3.6 U/L (0.0-3.6); CREATINE KINASE 110 UL (21-215); CREATININE - SERUM 0.5 mg/dL (0.6-1.3); GLUCOSE 129 mg/dL (74-106); MAGNESIUM - SERUM 1.8 mg/dL (1.8-2.4); POTASSIUM - SERUM 3.6 mmol/L (3.5-5.1); PROTEIN - SERUM 4.3 g/dL (6.4-8.2); THYROID STIMULATING HORMONE 1.94 uIU/mL (0.36-3.74); TROPONIN-I < 0.017 ng/mL (0.000-0.060); UREA NITROGEN 11 mg/dL (7-18); eGFR NON AFRICAN AMERICAN > 90 mL/min (90-120)
[2020-12-13 14:05] LABS: CALC OSMOLALITY 220 mosm/kg (275-300)
[2020-12-13 14:09] LABS: CALCIUM 6.4 mg/dL (8.5-10.1); CHLORIDE - SERUM 79 mmol/L (98-107); SODIUM 108 mmol/L (136-145)
[2020-12-13 15:07] LABS: POTASSIUM - URINE 22.7 MMOL/L (12.0-62.0)
--- NOTE | 2020-12-13 15:57 | NUR ---
NURSING ROUND PERFORMED. PATIENT EDUCATED ON PURPOSE OF CAREPLAN, EDUCATED ON HER ABNORMAL LABS, INTERPRETED CLINICALLY FOR HER. FAMILY AT BEDSIDE EDUCATED ON PATIENT STATUS AND CAREPLAN WITH PATIENT PERMISSION. PATIENT VERBALIZES UNDERSTANDING OF WHY SHE HAS THE CAREPLAN THAT SHE DOES AND UNDERSTANDS THAT SAFETY PRECAUTIONS AND FALL PRECAUTIONS. PATIENT IS NOW ALERT AND ORIENTED X 3, DROWSY.
[2020-12-13 16:36] LABS: CARBON DIOXIDE 12.9 mmol/L (21.0-32.0); GLUCOSE 108 mg/dL (74-106); POTASSIUM - SERUM 3.9 mmol/L (3.5-5.1); UREA NITROGEN 9 mg/dL (7-18)
[2020-12-13 16:38] LABS: CREATININE - SERUM 0.1 mg/dL (0.6-1.3); eGFR NON AFRICAN AMERICAN > 90 mL/min (90-120)
[2020-12-13 16:39] LABS: CALC OSMOLALITY 223 mosm/kg (275-300)
[2020-12-13 16:40] LABS: CALCIUM 6.1 mg/dL (8.5-10.1); CHLORIDE - SERUM 83 mmol/L (98-107); SODIUM 110 mmol/L (136-145)
--- NOTE | 2020-12-13 17:29 | NUR ---
ATTEMPTED REPORT TO ICU, ROMAN STEWART STATES THAT THE UNIT HAS A CRITICAL/SAFETY SITUATION WITH ANOTHER PATIENT THEY ARE ATTEMPTING TO DIFFUSE AND WILL CALL BACK FOR REPORT.
--- NOTE | 2020-12-13 17:37 | NUR ---
REPORT CALLED TO ICU.
--- NOTE | 2020-12-13 18:43 | NUR ---
RECIEVED VIA ER STRETCHER-NOTED EMESIS AND FECES ON PT GOWN AND SKIN-COMPLETE HEBILCLENS BATH GIVEN-NOTED BUTTOCK EXCORIATED-STAGE 1-8-YSRIHLDZ SKIN CARE DONE-BUTT BALM PLACED-CLEAN GOWN NOTED R SHOULDER [id number] NO PAIN AT SITE-NOT ABLE TO STATE IF NORM LOOK--STATES L SHOULDER PAINFUL-NO CHANGE IN APPEARANCE--NOTED HEMATOMAS TO TO R LOWER LIMB IN DIFFERENT STAGES OF HEALING -DAY ONE TO APPROX 3-5DAY COLOURATION-ABLE TO STATE NAME AND PRESIDENT-NOT AWARE OF SERIES OF EVENTS REQUIRING ARRIVAL TO ER-STATES DAUGHTERS CALLED-WITH ALSO STATING THEY ARE IN [place] ATTENDING A -
--- NOTE | 2020-12-13 20:19 | NUR ---
1899 DAY RN TALKED TO DR TRIPLETT AND NEW ORDERS RECD. PT WITH PAIN TO LEFT SHOULDER AND NECK. MORPHINE GIVEN AND LIBRIUM GIVEN ORDERED. SIGNIFICANT OTHER CALLED TO CHECK ON PT. PT AWAKE ALERT AND ORIENTED AND STATES OK TO GIVE HIM INFO. ALEC GRAYSON. UPDATED AND QUESTIONS ANSWRERED. WILL CONT TO MONITOR.
[2020-12-13 20:50] LABS: CARBON DIOXIDE 14.1 mmol/L (21.0-32.0); GLUCOSE 91 mg/dL (74-106); POTASSIUM - SERUM 3.5 mmol/L (3.5-5.1); UREA NITROGEN 9 mg/dL (7-18)
[2020-12-13 20:55] LABS: CALC OSMOLALITY 223 mosm/kg (275-300); CREATININE - SERUM 0.2 mg/dL (0.6-1.3); eGFR NON AFRICAN AMERICAN > 90 mL/min (90-120)
[2020-12-13 20:56] LABS: CALCIUM 6.4 mg/dL (8.5-10.1); CHLORIDE - SERUM 83 mmol/L (98-107); SODIUM 111 mmol/L (136-145)
--- NOTE | 2020-12-13 21:54 | NUR ---
2000 LAB WITH SLIGHT IMPROVEMENT. NEXT DRAW AT 2400 PT WITH XL LIQUID BM IN BED. CLEANED. LINENS CHANGED. SKIN CARE PROVIDED. BUTTOCKS RED. BUDREAUXS PLACED TO BUTTOCKS.
[2020-12-14] VITALS (7 sets, daily range): BP systolic 121–136; BP diastolic 78–91
--- NOTE | 2020-12-14 00:14 | NUR ---
LAB HERE FOR BMP LAB DRAW
--- NOTE | 2020-12-14 00:44 | NUR ---
DAUGHTER YANNA CALLED. PT VERIFIED OK TO UPDATE DAUGHTER. YANNA NUMBER IS [phone]. YANNA STATES HER MOM DRINKS ALL DAY. WAS POSSIBLY TAKING HER SIG OTHERS NERVE PILLS AND UNSURE IF TOOK TOO MANY BP PILLS. SHE STATES SIG OTHER CALLED HER CONCERNED AND TOLD HER THESE THINGS. WHEN ASK PT SHE DENIES TAKING ANYONE ELSES MEDS. TAKING TOO MANY BP PILLS. STATES SHE IS NOT TRYING TO HURT HERSELF AND DOESNT KNOW WHY THEY THINK SHE WOULD.
[2020-12-14 02:16] LABS: GLUCOSE 98 mg/dL (74-106); POTASSIUM - SERUM 3.4 mmol/L (3.5-5.1); UREA NITROGEN 7 mg/dL (7-18)
[2020-12-14 02:31] LABS: CALC OSMOLALITY 221 mosm/kg (275-300); CARBON DIOXIDE 19.4 mmol/L (21.0-32.0); CREATININE - SERUM 0.3 mg/dL (0.6-1.3); eGFR NON AFRICAN AMERICAN > 90 mL/min (90-120)
[2020-12-14 02:32] LABS: CHLORIDE - SERUM 83 mmol/L (98-107); SODIUM 110 mmol/L (136-145)
--- NOTE | 2020-12-14 03:52 | NUR ---
PT RESTING WELL AFTER LAST DOSE OF LIBRIUM. VSS. ULTRASOUND CALLED ABOUT 2AM AND STATED PT NEEDED TO BE NPO FOR US TODAY. NOTE PLACED ON PT DOOR.
--- NOTE | 2020-12-14 04:51 | NUR ---
MICROSTRATEGY ARCHITECT OBTAINED AM LAB
[2020-12-14 05:46] LABS: BASOPHILS 0 % (0-2); EOSINOPHILS 0 % (0-7); HEMATOCRIT 35.7 % (36.0-48.0); IMMATURE GRANULOCYTES 0.5 % (0-5); LYMPHOCYTES 9.5 % (15-50); MCH 35.2 pg (26.0-34.0); MCHC 36.4 g/dL (31.0-37.0); MCV 96.7 fL (80.0-100.0); MEAN PLATELET VOLUME 10.2 fL (7.4-10.4); MONOCYTES 6.1 % (2-11); NEUTROPHIL ABS# 7.04 10x3/uL (1.56-6.13); NEUTROPHILS 83.9 % (40-80); PLATELET COUNT 216 10x3/uL (130-400); RBC 3.69 10x6/uL (4.00-5.40); RDW 13.8 % (11.5-14.5)
[2020-12-14 05:57] LABS: WBC 8.4 10x3/uL (4.8-10.8)
[2020-12-14 06:11] LABS: ALBUMIN 1.5 g/dL (3.4-5.0); ALKALINE PHOSPHATASE 162 U/L (30-120); ALT (SGPT) 63 U/L (10-68); BILIRUBIN - TOTAL 0.69 mg/dL (0.2-1.3); CARBON DIOXIDE 20.7 mmol/L (21.0-32.0); CREATININE - SERUM 0.3 mg/dL (0.6-1.3); GLUCOSE 93 mg/dL (74-106); MAGNESIUM - SERUM 1.9 mg/dL (1.8-2.4); PHOSPHOROUS 2.1 mg/dL (2.5-4.9); POTASSIUM - SERUM 3.2 mmol/L (3.5-5.1); PROTEIN - SERUM 4.2 g/dL (6.4-8.2); UREA NITROGEN 6 mg/dL (7-18); eGFR NON AFRICAN AMERICAN > 90 mL/min (90-120)
[2020-12-14 06:12] LABS: CALC OSMOLALITY 224 mosm/kg (275-300)
[2020-12-14 06:14] LABS: CALCIUM 6.8 mg/dL (8.5-10.1); CHLORIDE - SERUM 84 mmol/L (98-107); SODIUM 112 mmol/L (136-145)
--- NOTE | 2020-12-14 06:14 | NUR ---
CRITICAL LABS CALLED ON PT FOR NA 112, CL 84, CA 6.8. IMPROVED SINCE 4HRS AGO. NEXT LAB DRAW 8AM THEY ARE Q4HR
[2020-12-14 10:10] LABS: CARBON DIOXIDE 20.3 mmol/L (21.0-32.0); CHLORIDE - SERUM 87 mmol/L (98-107); CREATININE - SERUM 0.3 mg/dL (0.6-1.3); GLUCOSE 121 mg/dL (74-106); POTASSIUM - SERUM 3.1 mmol/L (3.5-5.1); UREA NITROGEN 6 mg/dL (7-18); eGFR NON AFRICAN AMERICAN > 90 mL/min (90-120)
[2020-12-14 10:11] LABS: CALC OSMOLALITY 229 mosm/kg (275-300)
[2020-12-14 10:12] LABS: CALCIUM 6.7 mg/dL (8.5-10.1); SODIUM 114 mmol/L (136-145)
[2020-12-14 12:56] LABS: CARBON DIOXIDE 21.2 mmol/L (21.0-32.0); CHLORIDE - SERUM 87 mmol/L (98-107); GLUCOSE 109 mg/dL (74-106); UREA NITROGEN 5 mg/dL (7-18)
[2020-12-14 12:58] LABS: CALC OSMOLALITY 232 mosm/kg (275-300); CREATININE - SERUM 0.4 mg/dL (0.6-1.3); POTASSIUM - SERUM 3.7 mmol/L (3.5-5.1); eGFR NON AFRICAN AMERICAN > 90 mL/min (90-120)
[2020-12-14 13:00] LABS: CALCIUM 6.7 mg/dL (8.5-10.1); SODIUM 116 mmol/L (136-145)
[2020-12-14 16:02] LABS: CARBON DIOXIDE 22.7 mmol/L (21.0-32.0); CHLORIDE - SERUM 90 mmol/L (98-107); CREATININE - SERUM 0.4 mg/dL (0.6-1.3); GLUCOSE 132 mg/dL (74-106); POTASSIUM - SERUM 3.6 mmol/L (3.5-5.1); UREA NITROGEN 4 mg/dL (7-18); eGFR NON AFRICAN AMERICAN > 90 mL/min (90-120)
[2020-12-14 16:04] LABS: CALC OSMOLALITY 236 mosm/kg (275-300)
[2020-12-14 16:08] LABS: CALCIUM 6.9 mg/dL (8.5-10.1); SODIUM 118 mmol/L (136-145)
--- NOTE | 2020-12-14 17:05 | NUR ---
NURSE RECEIVED PATIENT FROM ICU VIA WHEELCHAIR. PATIENT AMBULATES WELL FROM CHAIR TO BED. PATIENT IS ALERT AND ORIENTED AT THIS TIME AND UNDERSTANDS THAT SHE IS IN THE HOSPITAL FOR UNSTABLE SODIUM LEVELS. PLAN OF CARE REVIEWED AND ASSESSMENT HAS BEEN COMPLETED. CALL LIGHT IN REACH.
--- NOTE | 2020-12-14 19:30 | NUR ---
PT IN BED, EYES CLOSED, RESP EVEN AND UNLABORED, NO DISTRESS NOTED, CL IN REACH, SR UP X 2.
[2020-12-14 20:42] LABS: CARBON DIOXIDE 23.2 mmol/L (21.0-32.0); CHLORIDE - SERUM 93 mmol/L (98-107); CREATININE - SERUM 0.4 mg/dL (0.6-1.3); GLUCOSE 99 mg/dL (74-106); POTASSIUM - SERUM 3.7 mmol/L (3.5-5.1); UREA NITROGEN 4 mg/dL (7-18); eGFR NON AFRICAN AMERICAN > 90 mL/min (90-120)
[2020-12-14 20:49] LABS: CALC OSMOLALITY 238 mosm/kg (275-300); SODIUM 120 mmol/L (136-145)
[2020-12-14 20:50] LABS: CALCIUM 6.8 mg/dL (8.5-10.1)
[2020-12-15] VITALS: BP 140/95
[2020-12-15 04:00] VITALS: BP 141/106
--- NOTE | 2020-12-15 04:14 | NUR ---
I have reviewed this patient and I concur with the Shift Assessment completed by the Licensed Practical Nurse today this shift.
--- NOTE | 2020-12-15 04:14 | NUR ---
I have reviewed this patient and I concur with the Shift Assessment completed by the Licensed Practical Nurse today this shift.
[2020-12-15 08:38] VITALS: BP 133/92
--- NOTE | 2020-12-15 10:38 | NUR ---
D/C CAREY CATHETER PER ORDERS. WITHDREW 9ML FROM BALLOON. EMPTIED 400ML FROM BAG. DENIES ANY OTHER NEEDS AT THIS TIME.
[2020-12-15 12:12] VITALS: BP 124/83
[2020-12-15 12:21] LABS: CALC OSMOLALITY 250 mosm/kg (275-300); CARBON DIOXIDE 21.4 mmol/L (21.0-32.0); CHLORIDE - SERUM 98 mmol/L (98-107); CREATININE - SERUM 0.4 mg/dL (0.6-1.3); GLUCOSE 116 mg/dL (74-106); POTASSIUM - SERUM 3.4 mmol/L (3.5-5.1); SODIUM 126 mmol/L (136-145); UREA NITROGEN 3 mg/dL (7-18); eGFR NON AFRICAN AMERICAN > 90 mL/min (90-120)
[2020-12-15 12:26] LABS: CALCIUM 6.7 mg/dL (8.5-10.1)
[2020-12-15 15:50] LABS: CALC OSMOLALITY 252 mosm/kg (275-300); CARBON DIOXIDE 25.2 mmol/L (21.0-32.0); CHLORIDE - SERUM 97 mmol/L (98-107); CREATININE - SERUM 0.5 mg/dL (0.6-1.3); GLUCOSE 109 mg/dL (74-106); POTASSIUM - SERUM 3.5 mmol/L (3.5-5.1); SODIUM 127 mmol/L (136-145); UREA NITROGEN 3 mg/dL (7-18); eGFR NON AFRICAN AMERICAN > 90 mL/min (90-120)
[2020-12-15 16:03] LABS: CALCIUM 6.7 mg/dL (8.5-10.1)
[2020-12-15 16:27] VITALS: BP 137/86
--- NOTE | 2020-12-15 17:37 | NUR ---
RESTING IN BED WITH EYES CLOSED. DAUGHTER YANNA CALLED AND ASKS THAT PATIENT BOYFRIEND ALEC NOT BE NOTIFIED UPON DISCHARGE. STATES THAT PATIENT DOES NOT WANT TO GO BACK WITH HIM. NOTIFIED CASE MANAGEMENT.
--- NOTE | 2020-12-15 19:30 | NUR ---
PT IN BED, AAO X 3, RESP EVEN AND UNLABORED, NO DISTRESS NOTED, CL IN REACH, SR UP X 2.
[2020-12-15 20:00] VITALS: BP 119/76
[2020-12-16] VITALS: BP 145/97
--- NOTE | 2020-12-16 03:46 | NUR ---
I have reviewed this patient and I concur with the Shift Assessment completed by the Licensed Practical Nurse today this shift.
[2020-12-16 04:00] VITALS: BP 141/86
[2020-12-16 05:13] LABS: CARBON DIOXIDE 26.4 mmol/L (21.0-32.0); CHLORIDE - SERUM 96 mmol/L (98-107); GLUCOSE 98 mg/dL (74-106); POTASSIUM - SERUM 3.1 mmol/L (3.5-5.1); SODIUM 127 mmol/L (136-145)
[2020-12-16 05:18] LABS: BASOPHILS 0 % (0-2); EOSINOPHILS 0.3 % (0-7); HEMATOCRIT 30.2 % (36.0-48.0); HEMOGLOBIN 10.4 g/dL (12-16); IMMATURE GRANULOCYTES 0.4 % (0-5); LYMPHOCYTE ABS# 0.82 10x3/uL (1.18-3.74); LYMPHOCYTES 10.3 % (15-50); MCH 34.8 pg (26.0-34.0); MCHC 34.4 g/dL (31.0-37.0); MEAN PLATELET VOLUME 10.3 fL (7.4-10.4); MONOCYTES 6.1 % (2-11); NEUTROPHIL ABS# 6.62 10x3/uL (1.56-6.13); NEUTROPHILS 82.9 % (40-80); PLATELET COUNT 192 10x3/uL (130-400); RBC 2.99 10x6/uL (4.00-5.40)
[2020-12-16 05:19] LABS: CALC OSMOLALITY 250 mosm/kg (275-300); CALCIUM 6.9 mg/dL (8.5-10.1); CREATININE - SERUM 0.3 mg/dL (0.6-1.3); UREA NITROGEN 2 mg/dL (7-18); eGFR NON AFRICAN AMERICAN > 90 mL/min (90-120)
[2020-12-16 05:32] LABS: UDS - AMPHET NEGATIVE QUAL (NEGATIVE); UDS - BARB NEGATIVE QUAL (NEGATIVE); UDS - BENZO POSITIVE QUAL (NEGATIVE); UDS - COCAINE NEGATIVE QUAL (NEGATIVE); UDS - OPIATE POSITIVE QUAL (NEGATIVE); UDS - PCP NEGATIVE QUAL (NEGATIVE); UDS - THC NEGATIVE QUAL (NEGATIVE)
[2020-12-16 08:41] VITALS: BP 133/87
[2020-12-16 11:35] VITALS: BP 129/89
[2020-12-16 16:04] VITALS: BP 142/88
--- NOTE | 2020-12-16 16:22 | NUR ---
OT NOTE: PT COMPLETED BED MOBILITY TASKS WITH MAX A. PT DID NOT PERFORM WELL PREVIOUS SESSION. PT COMPLETED SITTING BALANCE WITH MIN A TO MAINTAIN TRUNK STABILITY. PT REQUIRED EXTENDED TIME TO PERFORM TASKS. PT EXHIBITED MARKED DECREASED ACTIVITY TOLERANCE. NURSING AWARE. [phone] THANKK YOU,BRANDON MARQUIS
--- NOTE | 2020-12-16 19:33 | NUR ---
PT IN BED, AAO X 3, RESP EVEN AND UNLABORED, NO DISTRESS NOTED, CL IN REACH, SR UP X 2.
[2020-12-16 21:15] VITALS: BP 131/84
--- NOTE | 2020-12-17 00:46 | NUR ---
I have reviewed this patient and I concur with the Shift Assessment completed by the Licensed Practical Nurse today this shift.
[2020-12-17 00:57] VITALS: BP 149/96
[2020-12-17 04:07] VITALS: BP 152/97
[2020-12-17 05:45] LABS: BASOPHILS 0 % (0-2); EOSINOPHILS 0.4 % (0-7); HEMATOCRIT 30.5 % (36.0-48.0); HEMOGLOBIN 10.3 g/dL (12-16); IMMATURE GRANULOCYTES 0.4 % (0-5); LYMPHOCYTE ABS# 1.27 10x3/uL (1.18-3.74); LYMPHOCYTES 16.3 % (15-50); MCH 34.9 pg (26.0-34.0); MCHC 33.8 g/dL (31.0-37.0); NEUTROPHIL ABS# 5.98 10x3/uL (1.56-6.13); NEUTROPHILS 76.9 % (40-80); PLATELET COUNT 216 10x3/uL (130-400); RBC 2.95 10x6/uL (4.00-5.40); RDW 14.2 % (11.5-14.5); WBC 7.8 10x3/uL (4.8-10.8)
[2020-12-17 05:53] LABS: MCV 103.4 fL (80.0-100.0)
[2020-12-17 06:20] LABS: CALCIUM 7.4 mg/dL (8.5-10.1); CARBON DIOXIDE 26.8 mmol/L (21.0-32.0); CHLORIDE - SERUM 99 mmol/L (98-107); CREATININE - SERUM 0.3 mg/dL (0.6-1.3); GLUCOSE 85 mg/dL (74-106); MAGNESIUM - SERUM 2.1 mg/dL (1.8-2.4); SODIUM 130 mmol/L (136-145); eGFR NON AFRICAN AMERICAN > 90 mL/min (90-120)
[2020-12-17 06:21] LABS: CALC OSMOLALITY 256 mosm/kg (275-300); UREA NITROGEN 4 mg/dL (7-18)
[2020-12-17 08:14] VITALS: BP 148/89
[2020-12-17] MEDS ORDERED: THERMOTABS 1 GM1 GM PO (10:52)
--- NOTE | 2020-12-17 11:16 | PN ---
PATIENT:MARICARMEN CORONADO MEDICAL RECORD: [id number] LOCATION:D. D.210 ADMISSION DATE: 12/13/20 PROGRESS NOTE DATE OF SERVICE: 12/15/2020 SUBJECTIVE: The patient's case was reviewed. OBJECTIVE: The patient is in her room. She is arousable, but falls back to sleep almost immediately. She is not interviewable. I have reviewed her chart. I see that she is admitted for among other things mental status change and I have looked at her vital signs, which do indicate an elevated pulse rate and blood pressure; however, that is normal. She is taking Librium 100 mg a day. I have cut that down to only 15 mg a day. We will check on her tomorrow. Librium has a long half life. I am suspicious that she may have taken something in the hospital. I have ordered another urine drug screen and will return in interview her tomorrow. ASSESSMENT: 1. Mental status change uncertain etiology. 2. Alcohol abuse, uncertain severity. PLAN: As mentioned above, the patient is not interviewable. I will return tomorrow. TRANSINT:[id number] Voice Confirmation ID: [id number] DOCUMENT ID: [id number] MAKAYLA BONDS MD at 1116 CC: [id number] DICTATION DATE: 12/15/20 1614 CLAIM ANALYST: 12/15/20 2145 ADM IN [place] [id number] [place] [address]
--- NOTE | 2020-12-17 11:16 | PN ---
PATIENT:MARICARMEN CORONADO MEDICAL RECORD: [id number] LOCATION:D.[facility].210 ADMISSION DATE: 12/13/20 PROGRESS NOTE DATE OF SERVICE: 12/16/2020 SUBJECTIVE: The patient's case was discussed and the chart reviewed. OBJECTIVE: The patient is fully oriented and cooperative. She has a euthymic mood and no thoughts of harming herself or others. She strongly denies alcohol abuse. She does say that she drinks, but she says she only drinks 1 or 2 beers every evening. I pressed her on this issue. She does not back away from it. ASSESSMENT: Delirium, resolved. PLAN: The patient insists that she is not an alcoholic. The liver enzymes and hyponatremia would indicate a large amount of beer consumption, but there are certainly other possibilities. She is adamant that she does not drink excessively. Her vital signs are good. I am going to discontinue her Librium. She does not feel she has any psychiatric needs. Please reconsult if other issues arise. TRANSINT:[id number] Voice Confirmation ID: [id number] DOCUMENT ID: [id number] MAKAYLA BONDS MD at 1116 CC: [id number] DICTATION DATE: 12/16/20 1635 DOWEL SANDER OPERATOR: 12/17/20 0032 ADM IN [facility] [address] [place] [address]
--- NOTE | 2020-12-17 11:26 | NUR ---
DAUGHTER YANNA REPORTS TO NURSE THAT SHE IS NERVOUS ABOUT TAKING PATIENT HOME BECAUSE SHE HAS A YOUNG DAUGHTER AND IS GOING THROUGH DIVORCE. SHE SAYS SHE CANNOT BE WITH PATIENT ALL THE TIME. NURSE EXPRESSED CONCERN BECAUSE PT SEEMS TO NEED 24 HOUR CARE. SHE DOESNT PARTICIPATE IN THERAPY. SHE WONT GET OUT OF BED. SHE REFUSES BATHS. PT IS ALERT AND ORIENTED X4. PT REFUSES [facility] CARE OR REHAB. NURSE LATER SPOKE WITH ALL THREE DAUGHTERS ON THE PHONE. THEY ASKED IF PT COULD GET MEDICAL EQUIPMENT AT HOME SUCH A HOSPITAL BED, BSC, WHEELCHAIR. THEY ASKED IF SHE COULD GO HOME ON HOSPICE FOR FAILURE TO THRIVE. NURSE REPORTED ALL OF THIS TO FERNANDO DELGADO AND TO CURTIS PIERSON. SANDY SAID HE WOULD TALK TO PATIENT ABOUT HOSPICE BUT THAT IT WAS UNLIKELY. NURSE WILL CONTINUE TO FOLLOW. PLAN IS UNCLEAR AT THIS POINT.
--- NOTE | 2020-12-17 15:48 | NUR ---
OT NOTE: PT EXHIBITED SELF LIMITING BEHAVIOR. PT REQUIRED CUES FOR INCREASED PARTICIPATION. PT COMPLETED SUPINE TO SIT WITH MAX A. PT COMPLETED EOB SITTING WITH SBA. PT COMPLETED REACHING TO CROSS MIDLINE WHILE EOB WITH SBA. PT COMPLETED BUE AROM EXS TOLERATED. PT COMPLETED FACE AND HAND HAND HYGIENE WITH SETUP. PT REQUIRED EXTENDED TIME. PT C/O LEFT SIDE PAIN. REPORTED TO NURSING PT C/O PAIN. 1-131 YANNA SEAMAN COTA
--- NOTE | 2020-12-18 02:17 | MORECARE ---
CASE MANAGEMENT DISCHARGE SUMMARY PATIENT: MARICARMEN CORONADO UNIT: [id number] ADM DATE: 12/13/20 AGE: 55 : 65 SEX: F ROOM/BED: [facility]5 AUTHOR: DIANN,DOC PHYSICIAN: REFERRING PHYSICIAN: WENDY TRIPLETT MD DATE OF SERVICE: 12/18/20 Case Management Discharge Planning Summary DCP REVIEW SUMMARY ANTICIPATED D/C DATE: EXPECTED LOS : CASE STATUS: DCP Initiated INITIAL REVIEW: 12/13/2020 INITIAL REVIEWER: Perlita Ram FINAL DISCHARGE DISPOSITION: : FINAL REVIEWER: FINAL REVIEW DATE: DCP [employer] Questions [employer] Answers QUESTION: ANSWER : PATIENT: MARICARMEN CORONADO ENCOUNTER: [id number] MEDICAL RECORD#: [id number] ADMISSION DATE: 12/13/2020 DISCHARGE DATE: 12/17/2020 ATTENDING MD: WENDY LOPEZ : AGE: 55 MARITAL STATUS: D DC PLAN ID: [id number] FACILITY: [facility] PRINTED ON: 12/18/20 2:17 CT All edits/amendments must be made on the electronic document DICTATION DATE: 12/18/20216 MANUFACTURING TECHNICIAN: DM 12/18/20216 RPT#: [id number] DC DATE:12/17/20 STATUS: DIS IN [facility] [address] [place] [address] END OF REPORT
== END 2020-12-17 19:05 | disposition home or self-care (01) | DRG 640 ==
LOC: D.ER 11:15 → D.ICU 14:20 → D.M2 14:20
PROVIDERS: Family Medicine; Internal Medicine Nephrology; Psychiatry & Neurology Psychiatry; ADMIT Emergency Medicine; ATTEND Emergency Medicine
DX: E87.1 Hypo-osmolality and hyponatremia (principal); G93.41 Metabolic encephalopathy; I95.9 Hypotension, unspecified; E87.8 Other disorders of electrolyte and fluid balance, not elsewhere classified; I10 Essential (primary) hypertension; J44.9 Chronic obstructive pulmonary disease, unspecified; K21.9 Gastro-esophageal reflux disease without esophagitis; M19.90 Unspecified osteoarthritis, unspecified site; G89.29 Other chronic pain; M54.9 Dorsalgia, unspecified; F41.9 Anxiety disorder, unspecified; K46.9 Unspecified abdominal hernia without obstruction or gangrene; R00.0 Tachycardia, unspecified; K74.60 Unspecified cirrhosis of liver